=== PATIENT | male | born 1960 | race Caucasian/White ===

== ENCOUNTER 2018-03-08 12:17 | Emergency (ER) | payer MEDICARE, MEDICAID, SELFPAY ==
[2018-03-08 12:18] VITALS: BP 120/74; PULSE 109; RESP 18; TEMP 36.3; O2SAT 98; BMI 27.6
--- NOTE | 2018-03-08 12:46 | RAD_ITS ---
STUDY: X-RAY - LEFT KNEE REASON FOR EXAM: Male, 57 years old. Left knee pain. Left knee gave out. TECHNIQUE: 4 view(s) of the knee. COMPARISON: None available. FINDINGS: Normal visualized distal femur. Normal visualized proximal tibia and fibula. Normal proximal tibiofibular articulation. Normal medial femorotibial compartment. Normal lateral femorotibial compartment. Normal patellofemoral articulation. No suprapatellar joint effusion identified. The soft tissue structures are unremarkable. Bone mineralization appears age appropriate. RAD/Knee 4 or More Views IMPRESSION: Nonacute x-ray examination of the knee. Electronically Signed: Leif Helton, at 14:09 EDT Tel , Service support ,
[2018-03-08] MEDS: Naproxen 500 MG Tablet PO (12:49)
--- NOTE | 2018-03-08 13:00 | RAD_ITS ---
STUDY: X-RAY - RIGHT KNEE REASON FOR EXAM: Male, 57 years old. Right knee pain. Right knee gave out. TECHNIQUE: 4 view(s) of the knee. COMPARISON: None available. FINDINGS: Normal visualized distal femur. Normal visualized proximal tibia and fibula. Normal proximal tibiofibular articulation. Normal medial femorotibial compartment. Normal lateral femorotibial compartment. Normal patellofemoral articulation. No surgical or joint effusion identified. The soft tissue structures are unremarkable. Bone mineralization appears age appropriate. RAD/Knee 4 or More Views IMPRESSION: Nonacute x-ray examination of the knee. Electronically Signed: Leif Helton, at 14:07 EDT Tel , Service support ,
--- NOTE | 2018-03-08 13:24 | ED.VISSUMM ---
- ER Visit Summary Date of Service: 03/08/18 Chief Complaint: [knee pain] History of Present Illness: The patient is a 57 M [that presents with bilateral knee pain that started today when he got off his lawnmower and he states both his knees gave out. He denies landing on his knees or having any direct trauma or injury. He has pain that is worse with movement and better with remaining still. No associated paresthesias or weakness. He describes a dull aching pain. No swelling of the extremities. No other complaints. He has not yet taken anything for the pain.] Physical Examination: [General: The patient appears well and in no apparent distress. Patient is resting comfortably on cart. Skin: Warm, dry, no pallor noted. No rash. Head: Normocephalic, atraumatic Neck: Supple, nontender. Cardiovascular: Regular Rate and Rhythm, no gallups or rubs Respiratory: Patient is in no distress, no accessory muscle use, lungs are clear to auscultation, no wheezing, rales or rhonchi Musculoskeletal: normal ROM, no deformity, mild tenderness bilateral anterior knees, no swelling. 2+ radial and DP pulses symmetric. All compartments are soft. No erythema, warmth, or evidence of joint infection. Extensor mechanism is intact bilaterally. No instability with varus or valgus stress. GI: No tenderness to palpation, no masses appreciated. No rebound, guarding, or rigidity noted. Neurological: A&O, normal strength and sensation. Psychiatric: Cooperative] Test Results: [X-rays of bilateral knees show no acute fracture or dislocation on my evaluation.] Emergency Department Course and Treatment: [X-rays show no acute fracture or dislocation. Patient was given Naprosyn for pain. Patient will be placed in Mj wrap for comfort bilaterally and I will refer him to primary care for follow-up. He was instructed to return with any new or worsening symptoms. He will be provided a short-term prescription for Naprosyn. Patient and family understand and are agreeable with this plan of care. Patient was discharged home in stable condition.] Treatment Plan: [See above] Disposition: [Discharge home, stable condition] Impression: [Bilateral knee pain] This note was generated with [employer] software. It may contain incorrect words, spelling, and punctuation that were not noted in review of the chart prior to signing ED Disposition - Plan for ED Patient: Disposition: Home or Assisted Living Chief Complaint: Lower Extremity Injury Instructions: ED Knee Pain UKO Prescriptions: Naproxen [Naprosyn] 500 mg PO BID PRN #20 tab Referrals: Edmond Mcgee DO [STAFF PHYSICIAN] -
--- NOTE | 2018-03-08 13:29 | ED.DCSUM_ITS ---
- ER Visit Summary Date of Service: 03/08/18 Chief Complaint: [knee pain] History of Present Illness: The patient is a 57 M [that presents with bilateral knee pain that started today when he got off his lawnmower and he states both his knees gave out. He denies landing on his knees or having any direct trauma or injury. He has pain that is worse with movement and better with remaining still. No associated paresthesias or weakness. He describes a dull aching pain. No swelling of the extremities. No other complaints. He has not yet taken anything for the pain.] Physical Examination: [General: The patient appears well and in no apparent distress. Patient is resting comfortably on cart. Skin: Warm, dry, no pallor noted. No rash. Head: Normocephalic, atraumatic Neck: Supple, nontender. Cardiovascular: Regular Rate and Rhythm, no gallups or rubs Respiratory: Patient is in no distress, no accessory muscle use, lungs are clear to auscultation, no wheezing, rales or rhonchi Musculoskeletal: normal ROM, no deformity, mild tenderness bilateral anterior knees, no swelling. 2+ radial and DP pulses symmetric. All compartments are soft. No erythema, warmth, or evidence of joint infection. Extensor mechanism is intact bilaterally. No instability with varus or valgus stress. GI: No tenderness to palpation, no masses appreciated. No rebound, guarding, or rigidity noted. Neurological: A&O, normal strength and sensation. Psychiatric: Cooperative] Test Results: [X-rays of bilateral knees show no acute fracture or dislocation on my evaluation.] Emergency Department Course and Treatment: [X-rays show no acute fracture or dislocation. Patient was given Naprosyn for pain. Patient will be placed in Mj wrap for comfort bilaterally and I will refer him to primary care for follow -up. He was instructed to return with any new or worsening symptoms. He will be provided a short-term prescription for Naprosyn. Patient and family understand and are agreeable with this plan of care. Patient was discharged home in stable condition.] Treatment Plan: [See above] Disposition: [Discharge home, stable condition] Impression: [Bilateral knee pain] This note was generated with [employer] software. It may contain incorrect words, spelling, and punctuation that were not noted in review of the chart prior to signing ED Disposition - Plan for ED Patient: Disposition: Home or Assisted Living Chief Complaint: Lower Extremity Injury Instructions: ED Knee Pain UKO Prescriptions: Naproxen [Naprosyn] 500 mg PO BID PRN #20 tab Referrals: Edmond cMgee DO [STAFF PHYSICIAN] -
== END 2018-03-08 13:52 | disposition home or self-care (01) ==
PROVIDERS: Emergency Provider Emergency Medicine
DX: M25.561 Pain in right knee (principal); M25.562 Pain in left knee; E66.9 Obesity, unspecified
CPT/HCPCS: 73564; 99282

== ENCOUNTER 2018-03-30 22:22 | Emergency (ER) | payer MEDICARE, MEDICAID, SELFPAY ==
[2018-03-30 22:24] VITALS: BP 120/69; PULSE 85; RESP 16; TEMP 36.8; O2SAT 96; BMI 28.5
[2018-03-30 22:42] VITALS: O2SAT 98
[2018-03-30] MEDS: Aspirin 81 MG TAB.CHEW 324 MG PO (22:46)
[2018-03-30 22:52] LABS: Absolute Lymphocyte Count 1.91 X10^3/ul (0.83-4.51); Absolute Neutrophil Count 4.5 X10^3/uL (2.0-7.7); Basophil# 0.03 X10^3/uL; Basophil% 0.4 % (0-1); Eosinophil# 0.16 X10^3/uL; Eosinophils% 2.2 % (0-5); Hematocrit 43.9 % (40-54); Hemoglobin 15.6 g/dl (13.0-16.5); Lymphocyte # 1.91 X10^3/ul (4.0); Lymphocyte % 26.7 % (19-41); Mean Corp Hgb Conc 35.5 g/gl (32-36); Mean Corpuscular Hgb 32.4 pg (27.0-32.0); Mean Corpuscular Volume 91.1 fL (80-94); Mean Platelet Vol. 10.7 fl (6.2-12.0); Monocyte# 0.53 X10^3/uL; Monocyte% 7.4 % (0-10); Neutrophil # 4.52 X10^3/uL (2.7-7.7); Neutrophil % 63.3 % (47-70); Platelet Count 202 K/mm3 (150-450); RBC Distribution Width CV 12.5 % (11.6-14.6); RBC Distribution Width SD 41.7 fl (35.1-43.9); Red Blood Count 4.82 M/mm3 (4.6-6.2); White Blood Count 7.2 K/mm3 (4.4-11.0)
[2018-03-30 22:53] LABS: POSITIVE COUNT NO; POSITIVE DIFFERENTIAL NO; POSITIVE MORPHOLOGY NO
--- NOTE | 2018-03-30 22:55 | ED.VISSUMM ---
- ER Visit Summary Date of Service: 03/30/18 Chief Complaint: Chest pain History of Present Illness: The patient is a 57 M presenting with chest pain that started just prior to arrival. Patient was coming to the hospital to meet his girlfriend who was taken by squad to the ER for syncope. He began having midsternal chest pain 01/07. He has nausea and shortness of breath associated with this. He has a family history of his mother having a fatal OR at age 61. No other coronary artery disease risk factors. No PE/DVT risk factors. He is not a smoker. Physical Examination: Vitals are stable. Patient is afebrile. Alert no acute distress. HEENT exam is unremarkable. Neck is supple. Lungs are clear and equal bilaterally. Heart is regular rate and rhythm. Abdomen is soft nontender nondistended. Extremities are unremarkable. Skin is warm and dry. No focal neurologic deficit. Remainder of exam is unremarkable. Emergency Department Course and Treatment: Patient was given aspirin, morphine, Zofran on arrival. EKG is sinus rate of 86 with no acute ischemic changes. Chest x-ray shows no acute process. CBC, chemistries are unremarkable. Troponin is negative. On reevaluation, patient is chest pain-free. Will obtain a delta troponin. This will be checked out to the nighttime physician. Disposition: Pending delta troponin Impression: Chest pain This note was generated with [employer] dictation software. It may contain incorrect words, spelling, and punctuation that were not noted in review of the chart prior to signing ED Disposition - Plan for ED Patient: Chief Complaint: Chest Pain Instructions: ED Chest Pain Atypical Unkn Cause Referrals: Anna Kim MD [STAFF PHYSICIAN] - Care Physician,No Primary [Primary Care Provider] -
--- NOTE | 2018-03-30 22:58 | ED.DCSUM_ITS ---
- ER Visit Summary Date of Service: 03/30/18 Chief Complaint: Chest pain History of Present Illness: The patient is a 57 M presenting with chest pain that started just prior to arrival. Patient was coming to the hospital to meet his girlfriend who was taken by squad to the ER for syncope. He began having midsternal chest pain 01/07. He has nausea and shortness of breath associated with this. He has a family history of his mother having a fatal RI at age 61. No other coronary artery disease risk factors. No PE/DVT risk factors. He is not a smoker. Physical Examination: Vitals are stable. Patient is afebrile. Alert no acute distress. HEENT exam is unremarkable. Neck is supple. Lungs are clear and equal bilaterally. Heart is regular rate and rhythm. Abdomen is soft nontender nondistended. Extremities are unremarkable. Skin is warm and dry. No focal neurologic deficit. Remainder of exam is unremarkable. Emergency Department Course and Treatment: Patient was given aspirin, morphine, Zofran on arrival. EKG is sinus rate of 86 with no acute ischemic changes. Chest x-ray shows no acute process. CBC, chemistries are unremarkable. Troponin is negative. On reevaluation, patient is chest pain-free. Will obtain a delta troponin. This will be checked out to the nighttime physician. Disposition: Pending delta troponin Impression: Chest pain This note was generated with [employer] dictation software. It may contain incorrect words, spelling, and punctuation that were not noted in review of the chart prior to signing ED Disposition - Plan for ED Patient: Chief Complaint: Chest Pain Instructions: ED Chest Pain Atypical Unkn Cause Referrals: Anna Kim MD [STAFF PHYSICIAN] - Care Physician,No Primary [Primary Care Provider] -
[2018-03-30] MEDS: Morphine 4 MG/ML Syringe IV (23:06)
[2018-03-30] MEDS: Ondansetron 4 MG/2 ML Vial IV (23:06)
[2018-03-30 23:09] LABS: Anion Gap 16 (5-15); BUN 12 mg/dL (7-18); BUN/Creat Ratio 11.7 RATIO (10-20); Calcium,Total 8.9 mg/dL (8.5-10.1); Chloride 96 mmol/L (98-107); Creatinine, Serum 1.03 mg/dL (0.70-1.30); EST Glomerular Filtration Rate 79 mL/min (>60); Est Glom Filt Rate - Afr Amer 96 mL/min (>60); Estimated Creatinine Clearance 65.22 ml/min; Glucose 94 mg/dL (74-106); Potassium 3.8 mmol/L (3.5-5.1); Sodium Level 136 mmol/L (136-145)
[2018-03-30 23:23] VITALS: BP 121/75; PULSE 89; RESP 20; O2SAT 96
--- NOTE | 2018-03-30 23:53 | ED.DEP ---
ED Disposition - Plan for ED Patient: Chief Complaint: Chest Pain Instructions: ED Chest Pain Atypical Unkn Cause Referrals: Care Physician,No Primary [Primary Care Provider] - Anna Kim MD [STAFF PHYSICIAN] -
[2018-03-31] VITALS: BP 116/62; PULSE 79; RESP 17; O2SAT 93
[2018-03-31 01:24] VITALS: BP 127/65; PULSE 91; RESP 25; O2SAT 95
[2018-03-31] MEDS: proMETHazine 25 MG/ML Syringe 12.5 MG IV (01:24)
[2018-03-31 02:12] VITALS: BP 103/85; PULSE 90; RESP 20; O2SAT 98
--- NOTE | 2018-03-31 02:13 | ED.RN ---
PT GIVEN WRITTEN AND VERBAL DISCHARGE INSTRUCTIONS. PT EDUCATED NOT TO DRIVE FOR 6 HOURS AFTER HAVING MORPHINE. PT VERBALIZES UNDERSTANDING AND DENIES ANY FURTHER QUESTIONS. IV D/C AND COVERED WITH 2X2 GAUZE AND PAPER TAPE. PT DRESSES SELF. REPORTS FATHER IN LAW IS COMING TO PICK HIM UP FOR A RIDE. HOME. PT AMBULATES OUT OF DEPT AFTER DRESSING SELF WITH NO NEEDED ASSISTANCE FROM STAFF.
== END 2018-03-31 02:15 | disposition home or self-care (01) ==
PROVIDERS: Emergency Provider Emergency Medicine
DX: R07.9 Chest pain, unspecified (principal); R11.0 Nausea; R06.00 Dyspnea, unspecified
CPT/HCPCS: 71045; 80048; 84484; 85025; 93005; 96374; 96375; 99285; A4216; J2405

== ENCOUNTER → 2018-04-10 11:39 | Outpatient (CLI) | payer MEDICARE, MEDICAID, SELFPAY ==
[2018-04-10 15:39] LABS: AST(SGOT) 17 U/L (15-37); Alanine Aminotransfer ALT/SGPT 18 U/L (16-61); Alkaline Phosphatase 67 U/L (45-117); Anion Gap 9 (5-15); BUN 8 mg/dL (7-18); BUN/Creat Ratio 9.6 RATIO (10-20); Calcium,Total 8.8 mg/dL (8.5-10.1); Chloride 99 mmol/L (98-107); Cholesterol 249 mg/dL (200); Creatinine, Serum 0.83 mg/dL (0.70-1.30); EST Glomerular Filtration Rate 101 mL/min (>60); Est Glom Filt Rate - Afr Amer 123 mL/min (>60); Glucose 88 mg/dL (74-106); High Density Lipoprotein 90 mg/dL; PSA,Total - Annual Screen 0.58 ng/mL (0.00-4.00); Potassium 4.3 mmol/L (3.5-5.1); Sodium Level 136 mmol/L (136-145); Triglycerides 65 mg/dL; Very Low Density Lipoprotein 13 mg/dL (5-40)
== END ==
PROVIDERS: Family Provider Family Medicine; PCP Family Medicine; Visit Provider Family Medicine
DX: Z00.00 Encounter for general adult medical examination without abnormal findings (principal); Z12.5 Encounter for screening for malignant neoplasm of prostate
CPT/HCPCS: 36415; 80053; 80061; 84153; G0103

== ENCOUNTER → 2019-04-12 11:30 | Outpatient (CLI) | payer MEDICARE, MEDICAID, SELFPAY ==
[2019-04-12 15:42] LABS: Absolute Lymphocyte Count 0.56 X10^3/uL (0.83-4.51); Absolute Neutrophil Count 5.6 X10^3/uL (2.0-7.7); Basophil# 0.05 X10^3/uL; Basophil% 0.7 % (0-1); Eosinophil# 0.06 X10^3/uL; Eosinophils% 0.9 % (0-5); Hematocrit 45.5 % (40-54); Hemoglobin 15.6 g/dL (13.0-16.5); Lymphocyte # 0.56 X10^3/ul (4.0); Lymphocyte % 8.2 % (19-41); Mean Corp Hgb Conc 34.3 g/dL (32-36); Mean Corpuscular Hgb 33.8 pg (27.0-32.0); Mean Corpuscular Volume 98.7 fL (80-94); Mean Platelet Vol. 10.4 fl (6.2-12.0); Monocyte# 0.62 X10^3/uL; NRBC Flagged by Analyzer 0 % (0-5); Neutrophil # 5.55 X10^3/uL (2.7-7.7); Neutrophil % 80.9 % (47-70); POSITIVE DIFFERENTIAL YES; Platelet Count 187 K/mm3 (150-450); RBC Distribution Width CV 12.6 % (11.6-14.6); RBC Distribution Width SD 45.9 fl (35.1-43.9); Red Blood Count 4.61 M/mm3 (4.6-6.2); White Blood Count 6.9 K/mm3 (4.4-11.0)
[2019-04-12 15:50] LABS: Differential Indicated SCAN CRITERIA MET
[2019-04-12 15:55] LABS: AST(SGOT) 31 U/L (15-37); Alanine Aminotransfer ALT/SGPT 40 U/L (16-61); Albumin, Serum 4.2 g/dL (3.2-5.0); Alkaline Phosphatase 67 U/L (45-117); Anion Gap 8 (5-15); BUN 7 mg/dL (7-18); BUN/Creat Ratio 10.2 RATIO (10-20); Calcium,Total 9.2 mg/dL (8.5-10.1); Chloride 98 mmol/L (98-107); Creatinine, Serum 0.68 mg/dL (0.70-1.30); EST Glomerular Filtration Rate 127 mL/min (>60); Est Glom Filt Rate - Afr Amer 154 mL/min (>60); Globulin 4.2 g/dL (2.2-4.2); Glucose 72 mg/dL (74-106); PSA,Total - Annual Screen 0.92 ng/mL (0.00-4.00); Potassium 4.6 mmol/L (3.5-5.1); Protein, Total 8.4 g/dL (6.4-8.2); Sodium Level 138 mmol/L (136-145)
[2019-04-12 18:22] LABS: Platelet Estimate ADEQUATE (ADEQ); Red Cell Morphology NORM C+C NORMAL (NORM C&C)
== END ==
PROVIDERS: Family Provider Family Medicine; PCP Family Medicine; Visit Provider Family Medicine
DX: Z00.00 Encounter for general adult medical examination without abnormal findings (principal); F17.220 Nicotine dependence, chewing tobacco, uncomplicated; Z80.42 Family history of malignant neoplasm of prostate; Z12.5 Encounter for screening for malignant neoplasm of prostate
CPT/HCPCS: 36415; 80053; 84153; 85025; G0103

== ENCOUNTER 2020-05-12 15:28 | Emergency (ER) | payer MEDICARE, MEDICAID, SELFPAY ==
[2020-05-12] VITALS (7 sets, daily range): BP systolic 141–154; BP diastolic 75–94; PULSE 98–110; RESP 16–22; TEMP 36.4; O2SAT 97–99; BMI 23.8
--- NOTE | 2020-05-12 15:42 | EKG12_ITS ---
Test Reason : CP Blood Pressure : / mmHG Vent. Rate : 098 BPM Atrial Rate : 098 BPM P-R Int : 120 ms QRS Dur : 084 ms QT Int : 374 ms P-R-T Axes : 057 045 060 degrees QTc Int : 477 ms Normal sinus rhythm Normal ECG Confirmed by EVAN ROJO, GIOVANNI ([id number]), editor managing newspaper TOI LAMBERT ([id number]) on 05/18/2020 8:20:30 A M Referred By: PAZ Confirmed By:YENY GORDON MD
--- NOTE | 2020-05-12 15:42 | RAD_ITS ---
STUDY: X-RAY CHEST REASON FOR EXAM: Male, 59 years old. Pleuritic chest pain and dyspnea. TECHNIQUE: PA and lateral COMPARISON: 03/30/2018. FINDINGS: The lungs are clear and expanded. There is no demonstrated pleural abnormality. Normal size heart. Normal mediastinum and ivnone. Normal visualized pulmonary arteries. Normal visualized aortic arch and descending thoracic aorta. Normal visualized thoracic spine. Normal visualized ribs, clavicles, and shoulders. There is no demonstrated abnormality of the visualized soft tissue structures of the upper abdomen. No significant change since prior exam RAD/Chest PA and Lateral IMPRESSION: Normal x-ray examination of the chest. Electronically Signed: Eduardo Khan MD at 16:17 EDT , Service support ,
--- NOTE | 2020-05-12 15:43 | ED.DCSUM_ITS ---
History of Present Illness Chief Complaint: Chest Pain Detail of Chief Complaint: Pleuritic chest pain with dyspnea Informant: Patient Onset: Hours Context: Sudden Onset Timing: Intermittent Quality: Pleuritic left-sided chest pain Location: Left side Current Severity: Mild Maximum Severity: Moderate Worsened by: Onset with walking home from [facility] Relieved by: Nothing specific Associated Symptoms: Sensation of warmth, nausea and tingling left upper extremity Narrative: Patient is a 59-year-old male who smoked at the age of 20 only who presents with left-sided pleuritic chest pain while he was walking home from [facility]. He reported shortness of breath, sensation of warmth with nausea. He did not become diaphoretic. He denied radiation of the pain. He states that left arm was tingly, however. He denies history of trauma. Denies skin lesion or rash. He denies fever, chills night sweats. He has no history of VTE or risk factors. He states he had similar presentation several years ago and had a stress test which was negative. He denies history of hiatal hernia or reflux. He denies black or maroon stool. He denies cough. He denies rhinorrhea, congestion or postnasal drainage. Denies sore throat. He denies symptoms of claudication. Has orthopnea PND. Prior similar symptoms: Yes - Years ago with negative work-up Recent Illness/Hospitalization: No Past Medical History - Allergies and Home Meds Allergies/Adverse Reactions: Allergies No Known Allergies Allergy (Verified 03/30/18 22:23) Primary Care Physician: Riana Shanks MD [Primary Care Provider] - Prior records reviewed: No Surgical History: noncontributory Lives: Alone Smoking Status: Never smoker Alcohol: None Drugs: None Review of Systems General: Denies: Chills, Fever, Malaise Eyes: Denies: Visual changes - bilaterally, Blurred Vision - bilaterally ENT: Denies: Rhinorrhea, Sore throat Cardiovascular: Reports: Chest pain. Denies: Palpitations, Heart racing Respiratory: Reports: Dyspnea. Denies: Cough, Dyspnea on exertion, Orthopnea, Paroxysmal nocturnal dyspnea Gastrointestinal: Reports: Nausea. Denies: Abdominal pain, Vomiting, Diarrhea, Constipation, Melena, Hematochezia, -, - Musculoskeletal: Denies: Myalgias, Arthralgias, Neck pain, Back pain, Swelling, Extremity Pain, -, - Skin: Denies: Rash, Wounds Neurological: Denies: Headache, Weakness, Numbness Endocrine: Denies: Polyuria, Polydipsia Hematologic: Denies: Easy bruising, Easy bleeding Physical Exam Vital Signs/Narrative: Vital Signs Temp Pulse Resp BP Pulse Ox 05/12/20 15:33 97.6 F L 98 18 152/86 H 99 05/12/20 15:29 97.6 F L 98 18 152/86 H 99 Inital Vital Signs reviewed: Yes General: Well nourished, Well developed, No Acute Distress Head: Normocephalic, Atraumatic Eyes: Perrl, EOMI. Negative for: Pale conjunctiva, Scleral icterus ENT: No rhinorrhea, TM's clear Neck: Supple, Nontender, No lymphadenopathy, No JVD Cardiovascular: Regular rate, Regular rhythm, No murmurs, Normal S1, Normal S2 Respiratory: No distress, CTA bilaterally, Chest nontender Abdomen: Soft, Nontender, Nondistended, Normal bowel sounds, No masses. Negative for: Hepatomegaly, Splenomegaly, Pulsatile mass Rectal: Deferred Back: Nontender, Normal Inspection. Negative for: CVA tenderness Extremities: Nontender, No edema, - - And has multiple scars left upper extremity. These are well-healed. Skin: Normal color, No rash, No Trauma. Negative for: Cyanosis, Diaphoresis, Jaundice Neurological: Alert, Oriented x3, Cranial nerves II-XII grossly intact, Normal Strength, Normal Sensation Psychological: Normal affect, Normal Mood Diagnostic/Tx/Re-eval Impressions Chest X-Ray 05/12/20 15:42 IMPRESSION: Normal x-ray examination of the chest. Electronically Signed: Eduardo Kahn MD at 16:17 EDT , Service support , Chest CTA 05/12/20 16:58 IMPRESSION: Mild ASHD. No acute disease. No evidence for pulmonary embolus. Electronically Signed: Eduardo Khan MD at 18:06 EDT , Service support , 05/12/20 15:42 Chest PA and Lateral [RAD] Stat 05/12/20 16:58 CTA Chest W/WO Contrast [CT] Stat Laboratory Results 05/12/20 05/12/20 05/12/20 15:45 15:45 15:45 WBC 3.9 L RBC 4.20 L Hgb 14.6 Hct 41.1 MCV 97.9 H MCH 34.8 H MCHC 35.5 RDW Std Deviation 42.8 RDW Coeff of Gabriel 11.9 Plt Count 151 MPV 9.5 Immature Gran % (Auto) 0.300 Neut % (Auto) 72.7 H Lymph % (Auto) 16.1 L Bledsoe % (Auto) 9.1 Eos % (Auto) 0.8 Baso % (Auto) 1.0 Absolute Neuts (auto) 2.8 Absolute Lymphs (auto) 0.62 L Nucleated RBC % 0 D-Dimer Quant (PE/DVT) 0.58 H* Sodium 135 L Potassium 4.0 Chloride 98 Carbon Dioxide 30.0 Anion Gap 7 BUN 5 L Creatinine 0.71 Estim Creat Clear Calc 99.85 Est GFR (MDRD) Af Amer 147 Est GFR (MDRD) Non-Af 121 BUN/Creatinine Ratio 7.1 L Glucose 95 Calcium 8.5 Troponin I < 0.015 05/12/20 18:45 WBC RBC Hgb Hct MCV MCH MCHC RDW Std Deviation RDW Coeff of Gabriel Plt Count MPV Immature Gran % (Auto) Neut % (Auto) Lymph % (Auto) Bledsoe % (Auto) Eos % (Auto) Baso % (Auto) Absolute Neuts (auto) Absolute Lymphs (auto) Nucleated RBC % D-Dimer Quant (PE/DVT) Sodium Potassium Chloride Carbon Dioxide Anion Gap BUN Creatinine Estim Creat Clear Calc Est GFR (MDRD) Af Amer Est GFR (MDRD) Non-Af BUN/Creatinine Ratio Glucose Calcium Troponin I < 0.015 CT reveals evidence of atherosclerotic heart disease. Reason for 3-hour troponin and repeat EKG. Repeat EKG is normal and unchanged from first EKG obtained. Per subjective troponin normal and delta is 0. Will discharge to home with diagnosis of pleuritic chest pain - EKG Initial EKG Interpretation: Sinus Rhythm - EKG reveals a normal sinus rhythm with a ventricular rate of 98. CO interval is 120. Cures duration is 84 ms. QT duration 3 and 74 ms. [place] is normal. The EKG is normal. Follow-up EKG Interpretation: Sinus Rhythm - 3-hour EKG reveals a sinus rhythm with a rate of 100. CO interval is 114 ms. QS duration 74 ms. QT duration 364 ms. [place] is normal. EKG is normal and unchanged from EKG that was performed earlier today at 1535. - Medical Decision Making With pleuritic chest pain need to evaluate for pneumonia, bronchitis, pleurisy and pulmonary embolus. EKG, chest x-ray appropriate blood work was obtained. ED Disposition - Plan for ED Patient: Disposition: Home or Assisted Living Diagnosis: Pleuritic chest pain, Dyspnea Instructions: ED Chest Pain Pleurisy Prescriptions: Naproxen [Naprosyn] 500 mg PO BID #10 tab Prescription Printed Referrals: Riana Shanks MD [Primary Care Provider] - 3-5 Days if not improving
[2020-05-12 16:01] LABS: Absolute Lymphocyte Count 0.62 X10^3/uL (0.83-4.51); Absolute Neutrophil Count 2.8 X10^3/uL (2.0-7.7); Basophil# 0.04 X10^3/uL; Eosinophil# 0.03 X10^3/uL; Eosinophils% 0.8 % (0-5); Hematocrit 41.1 % (40-54); Hemoglobin 14.6 g/dL (13.0-16.5); Lymphocyte # 0.62 X10^3/ul (4.0); Lymphocyte % 16.1 % (19-41); Mean Corp Hgb Conc 35.5 g/dL (32-36); Mean Corpuscular Hgb 34.8 pg (27.0-32.0); Mean Corpuscular Volume 97.9 fL (80-94); Mean Platelet Vol. 9.5 fl (6.2-12.0); Monocyte# 0.35 X10^3/uL; Monocyte% 9.1 % (0-10); NRBC Flagged by Analyzer 0 % (0-5); Neutrophil % 72.7 % (47-70); Platelet Count 151 K/mm3 (150-450); RBC Distribution Width CV 11.9 % (11.6-14.6); RBC Distribution Width SD 42.8 fl (35.1-43.9); White Blood Count 3.9 K/mm3 (4.4-11.0)
[2020-05-12 16:20] LABS: Anion Gap 7 (5-15); BUN 5 mg/dL (7-18); BUN/Creat Ratio 7.1 RATIO (10-20); Calcium,Total 8.5 mg/dL (8.5-10.1); Chloride 98 mmol/L (98-107); Creatinine, Serum 0.71 mg/dL (0.70-1.30); D-Dimer Quantitative (DVT/PE) 0.58 FEU/ug/m (0.27-0.49); EST Glomerular Filtration Rate 121 mL/min (>60); Est Glom Filt Rate - Afr Amer 147 mL/min (>60); Estimated Creatinine Clearance 99.85 ml/min; Glucose 95 mg/dL (74-106); Sodium Level 135 mmol/L (136-145)
--- NOTE | 2020-05-12 16:58 | CT_ITS ---
STUDY: CTA CHEST REASON FOR EXAM: Male, 59 years old. SOB, CHEST PAIN, ELEVATED D-DIMER RADIATION DOSAGE (If Supplied By Facility): CTDIvol = ( 7.37 ) mGy, DLP = ( 261.88 ) mGycm TECHNIQUE: The examination was performed with the intravenous administration of IV 75mL Isovue-370. Post-processing of the angiographic images was performed, with multiplanar reformation and 3D reconstruction. Individualized dose optimization techniques were used for this CT. COMPARISON: Portable chest 05/12/2020 CTA 06/25/2017 FINDINGS: Normal enhancement of the main pulmonary artery and right and left pulmonary arteries. Normal enhancement of the bilateral peripheral pulmonary arteries. There is no demonstrated pulmonary embolism. Normal thoracic aorta and visualized great vessels. There is no demonstrated aortic dissection. Heart is normal size. There is minor coronary artery calcification Normal mediastinum. Normal hilar regions. Normal visualized trachea and bronchi. The lungs are well expanded. Normal pulmonary parenchyma. Normal pleura. Normal chest wall structures. Dorsal spine demonstrates mild spondylosis Normal visualized upper abdomen. CT/CTA Chest W/WO Contrast IMPRESSION: Mild ASHD. No acute disease. No evidence for pulmonary embolus. Electronically Signed: Eduardo Khan MD at 18:06 EDT , Service support ,
--- NOTE | 2020-05-12 18:40 | EKG12_ITS ---
Test Reason : REPEAT Blood Pressure : / mmHG Vent. Rate : 100 BPM Atrial Rate : 100 BPM P-R Int : 114 ms QRS Dur : 074 ms QT Int : 364 ms P-R-T Axes : 059 039 072 degrees QTc Int : 469 ms Normal sinus rhythm Normal ECG Confirmed by EVAN ROJO, GIOVANNI ([id number]), avid editor TOI LAMBERT ([id number]) on 05/18/2020 8:20:44 A M Referred By: Confirmed By:YENY GORDON MD
== END 2020-05-12 20:02 | disposition home or self-care (01) ==
PROVIDERS: Emergency Provider Emergency Medicine; PCP Family Medicine
DX: R07.81 Pleurodynia (principal); R06.00 Dyspnea, unspecified; R11.0 Nausea; I25.10 Atherosclerotic heart disease of native coronary artery without angina pectoris
CPT/HCPCS: 71046; 71275; 80048; 84484; 85025; 85379; 93005; 99283; Q9967; A4216

== ENCOUNTER → 2020-06-02 09:01 | Outpatient (CLI) | payer MEDICARE, MEDICAID, SELFPAY ==
[2020-05-12 15:29] VITALS: BMI 23.8
--- NOTE | 2020-06-02 09:03 | STEWCON_ITS ---
Reason For Study: DYSPNEA ON EXERTION Stress Results Protocol: [facility] Protocol WITH DEFINITY Maximum Predicted HR: 162 bpm Target HR: 138 bpm % Maximum Predicted HR: 97 % DurationHeart Rate Stage (mm:ss) (bpm) BP Comment BASELINE 112 138/885 CC DEFINITY FOR ENTIRE TEST STAGE 1 3:00 137 162/82 STAGE 2 3:00 142 166/70 STAGE 3 2:00 157 / RECOVERY 122 140/80 Stress Duration: 8:00 mm:ss Maximum Stress HR: 157 bpm METS: 9 Baseline Echocardiogram Findings Mild tricuspid valve insufficiency. Right ventricular systolic pressure estimated to be 33 mmHg. Stress Echo Wall motion Data Resting WM Intermediate WM Stress WM Resting Wall Motion Wall Motion Stress All segments Normal. Anterio-Basal: Normal. Ejection Fraction 60 %. Lateral-Basal: Normal. Posterior-Basal: Normal. Infero-Basal: Hypokinetic. Basal inferoseptal: Normal. Basal anteroseptal: Normal. Mid-Anterior : Normal. Mid-Lateral : Hypokinetic. Mid-Posterior: Normal. Mid-Inferior: Hypokinetic. Mid-inferoseptal : Normal. Mid-anteroseptal : Normal. Anterior [place] : Normal. Inferior [place] : Normal. Lateral [place] : Normal. Septall [place] : Normal. Ejection Fraction 70 %. Stress Results Heart rate response: Resting sinus tachycardia-appropriate response Blood pressure: Resting hypertension-appropriate response Arrhythmias: Isolated PVC during recovery Functional capacity: Good Stopped secondary to: Dyspnea. EKG Data Baseline ECG: Sinus tachycardia. Peak exercise ECG: Somatic/motion artifact with no obvious ECG changes. Symptoms with Stress No complaint of chest discomfort during exercise or recovery. Doppler Measurements & Calculations TR max vince: 271.4 cm/sec TR max P.5 mmHg Interpretation Summary 1. Technically difficult study 2. Contrast injection performed 3. Abnormal (adequate) stress echocardiogram A. Pre exercise tolerance test LV wall motion: Considered normal B. Post exercise tolerance test LV wall motion: Considered abnormal with hypokinesis of the basal inferior, mid inferior, and mid lateral segments 4. Mild tricuspid valve insufficiency. 5. Right ventricular systolic pressure estimated to be 33 mmHg. Ordering Physician: Riana Shanks Referring Physician: Riana Shanks Performed By: Tori Darnell, RDCS, RVT
== END ==
PROVIDERS: PCP Family Medicine; Referring Provider Family Medicine; Visit Provider Family Medicine
DX: R06.00 Dyspnea, unspecified (principal)
CPT/HCPCS: 93017; 93350; Q9957; A4216; C8928

== ENCOUNTER 2020-07-19 08:58 | Emergency (ER) | payer MEDICARE, MEDICAID, SELFPAY ==
[2020-07-16 16:14] VITALS: BMI 24.8
[2020-07-19 08:59] VITALS: BP 155/79; PULSE 80; RESP 16; TEMP 36.4; O2SAT 100; BMI 30.9
--- NOTE | 2020-07-19 09:08 | ED.VIS.GEN ---
History of Present Illness Chief Complaint: Upper Extremity Injury Informant: Patient Narrative: 60-year-old male states that last night he misjudged the distance between him and his chair and he came down causing hyperextension of the right ring finger. He notes swelling and pain. He denies any other injuries Past Medical History - Allergies and Home Meds Allergies/Adverse Reactions: Allergies No Known Allergies Allergy (Verified 07/19/20 09:01) Primary Care Physician: Riana Shanks MD [Primary Care Provider] - Past Medical History: - - Abnormal stress test hyperlipidemia Surgical History: noncontributory Smoking Status: Never smoker Drugs: None Review of Systems General: Denies: Chills, Fever, Sweats Eyes: Denies: Visual changes - bilaterally, Diplopia ENT: Denies: Rhinorrhea, Sore throat Cardiovascular: Denies: Chest pain, Palpitations Respiratory: Denies: Dyspnea, Cough, Dyspnea on exertion Gastrointestinal: Denies: Abdominal pain, Nausea, Vomiting, Diarrhea, Melena, Hematochezia Genitourinary: Denies: Dysuria, Hematuria, Frequency Musculoskeletal: Reports: Extremity Pain. Denies: Back pain Skin: Denies: Rash, Wounds Neurological: Denies: Headache, Weakness, Numbness Physical Exam Vital Signs/Narrative: Vital Signs Temp Pulse Resp BP Pulse Ox 07/19/20 08:59 97.6 F L 80 16 155/79 H 100 Inital Vital Signs reviewed: Yes General: Well nourished, Well developed, No Acute Distress Head: Normocephalic, Atraumatic Eyes: Perrl, EOMI ENT: Moist mucous membranes, No rhinorrhea Neck: Supple, Nontender Cardiovascular: Regular rate, Regular rhythm, No murmurs Respiratory: No distress, CTA bilaterally, Chest nontender Abdomen: Soft, Nontender, Nondistended, Normal bowel sounds Back: Nontender, Normal Inspection Extremities: - - Tenderness to palpation over the right ring PIP joint. There is mild swelling and ecchymosis noted. Tendon function appears intact. Limited range of motion due to pain Skin: Normal color, No rash Neurological: Alert, Oriented x3, Cranial nerves II-XII grossly intact, Normal Strength, Normal Sensation Psychological: Normal affect, Normal Mood Diagnostic/Tx/Re-eval Clinical Impression(s) from Imaging Studies Finger X-Ray 07/19/20 09:10 IMPRESSION: No radiographic evidence for acute fracture or dislocation. Electronically Signed: Vicky Segura MD at 9:30 EST , Service support , - Medical Decision Making My interpretation of the plain films 3 view of the right ring finger were negative for fracture. Positive soft tissue swelling. Radiology agrees. Patient will be placed in AlumaFoam splint. Conservative treatment for 10 to 14 days return if worsening or concerns. If not improvement follow-up with primary care ED Disposition - Plan for ED Patient: Disposition: Home or Assisted Living Diagnosis: Finger sprain Instructions: ED Finger Sprain Referrals: Riana Shanks MD [Primary Care Provider] - 10-14 Days if not better
--- NOTE | 2020-07-19 09:10 | RAD_ITS ---
STUDY: X-RAY - RIGHT HAND, ATTENTION RING FINGER REASON FOR EXAM: Male, 60 years old patient with pain, swelling, redness and stiff right ring finger. Patient states he fell off a chair last night and bent his finger back. TECHNIQUE: 3 view(s) of the finger were obtained. COMPARISON: Prior comparison studies are not available for review at this time. FINDINGS: Normal metacarpal head. Normal metacarpophalangeal joint. Normal proximal phalanx. Normal middle phalanx. Normal distal phalanx. Normal proximal interphalangeal joint. Normal distal interphalangeal joint. There is a localized soft tissue swelling at the PIP joint of the ring finger. There is a well-corticated bony fragment near the radial styloid that is probably secondary to previous trauma. RAD/Finger(s) Min 2 Views IMPRESSION: No radiographic evidence for acute fracture or dislocation. Electronically Signed: Vicky Segura MD at 9:30 EST , Service support ,
== END 2020-07-19 09:54 | disposition home or self-care (01) ==
PROVIDERS: Emergency Provider Emergency Medicine; PCP Family Medicine
DX: S63.614A Unspecified sprain of right ring finger, initial encounter (principal); X50.1XXA Overexertion from prolonged static or awkward postures, initial encounter; Y93.9 Activity, unspecified; Y92.9 Unspecified place or not applicable
CPT/HCPCS: 73140; 99283

== ENCOUNTER 2020-08-07 07:49 | Day surgery (SDC) | payer MEDICARE, MEDICAID, SELFPAY ==
[2020-07-16 16:14] VITALS: BMI 24.8
[2020-07-21 11:22] LABS: Absolute Lymphocyte Count 0.71 X10^3/uL (0.83-4.51); Absolute Neutrophil Count 3.9 X10^3/uL (2.0-7.7); Basophil# 0.05 X10^3/uL; Basophil% 0.9 % (0-1); Eosinophil# 0.12 X10^3/uL; Eosinophils% 2.2 % (0-5); Hematocrit 46.2 % (40-54); Hemoglobin 15.9 g/dL (13.0-16.5); Lymphocyte # 0.71 X10^3/ul (4.0); Lymphocyte % 12.9 % (19-41); Mean Corp Hgb Conc 34.4 g/dL (32-36); Mean Corpuscular Hgb 34.5 pg (27.0-32.0); Mean Corpuscular Volume 100.2 fL (80-94); Mean Platelet Vol. 10.1 fl (6.2-12.0); Monocyte# 0.67 X10^3/uL; Monocyte% 12.2 % (0-10); NRBC Flagged by Analyzer 0 % (0-5); Neutrophil # 3.94 X10^3/uL (2.7-7.7); Neutrophil % 71.4 % (47-70); Platelet Count 218 K/mm3 (150-450); RBC Distribution Width CV 11.8 % (11.6-14.6); RBC Distribution Width SD 43.3 fl (35.1-43.9); Red Blood Count 4.61 M/mm3 (4.6-6.2); White Blood Count 5.5 K/mm3 (4.4-11.0)
[2020-07-21 11:33] LABS: International Normalized Ratio 0.9; Partial Thromboplast Time 23.9 Seconds (24.1-36.2); Prothrombin Time (Protime)PT. 11.2 SECONDS (11.7-14.9)
[2020-07-21 11:54] LABS: AST(SGOT) 22 U/L (15-37); Alanine Aminotransfer ALT/SGPT 20 U/L (16-61); Alkaline Phosphatase 63 U/L (45-117); Anion Gap 5 (5-15); BUN 7 mg/dL (7-18); Calcium,Total 8.8 mg/dL (8.5-10.1); Chloride 99 mmol/L (98-107); Cholesterol 244 mg/dL (200); Creatinine, Serum 0.78 mg/dL (0.70-1.30); EST Glomerular Filtration Rate 109 mL/min (>60); Est Glom Filt Rate - Afr Amer 132 mL/min (>60); Globulin 4.1 g/dL (2.2-4.2); Glucose 120 mg/dL (74-106); High Density Lipoprotein 122 mg/dL; Protein, Total 8.1 g/dL (6.4-8.2); Sodium Level 137 mmol/L (136-145); Triglycerides 120 mg/dL; Very Low Density Lipoprotein 24 mg/dL (5-40)
[2020-08-06 10:56] VITALS: BMI 24.7
--- NOTE | 2020-08-07 06:00 | HP_ITS ---
HPI HPI History of Present Illness Surgical H&P: Yes Details: This is a 60-year-old white male who was referred for evaluation of chest pain, shortness of breath/dyspnea, and abnormal chest CT scan demonstrating coronary artery calcification, and an abnormal stress echocardiogram suggesting stress-induced left ventricular regional wall motion abnormalities concerning for stress-induced myocardial ischemia. He states he has had episodes where he gets a somewhat sharp but then a hurting discomfort in the center of his chest/precordium. This is associated with shortness of breath and dyspnea. This is occurred with exertion. He has not necessarily had nausea or emesis or diaphoresis. There is been no near syncope or syncope. He has been evaluated in the emergency department. He did not require inpatient evaluation or care at the time. He has had a chest CT scan which suggested coronary artery calcification. He had a stress echocardiogram performed on 06-02-2020. The results are noted below. It did raise concerns of stress-induced left ventricular regional wall motion abnormalities which would be concerning for stress-induced myocardial ischemia despite his overall LV systolic function improving. Since that time he was placed on medical therapy with aspirin by his PCP. It does appear that he has a history of hyperlipidemia. He does not recall the last time his lipids were checked. His lab available for review at this time was on 04-10-2018. At that time his total cholesterol was 249 with an LDL of 146 and an HDL of 90. His triglycerides were 65. He has not been on lipid-lowering medication. He had an ECG in the office today. He was noted to be in sinus rhythm/sinus tachycardia with no acute ECG changes. Intake Vital Signs 07/16/20 Height 5 ft 3 in 07/16/20 Weight: 140 lb 5 oz 07/16/20 BMI 24.8 07/16/20 BP 132/60 H 07/16/20 Blood Pressure Location Lt brachial 07/16/20 Position Sitting 07/16/20 Respiration 16 07/16/20 Pulse 92 07/16/20 Pulse Source Auscultation Intake Visit Reasons: Abn SE/ Ref. [place] Machine Operator Required: No Accompanied by: Self Allergies No Known Allergies Allergy (Verified 07/16/20 16:15) Medications aspirin 81 mg tablet,delayed release 81 mg PO DAILY 07/16/20 [History Confirmed 07/16/20] clopidogrel 75 mg tablet 75 mg PO DAILY #30 tab 07/16/20 [Rx Confirmed 07/16/20] metoprolol tartrate 25 mg tablet 25 mg PO BID #60 tab 07/16/20 [Rx Confirmed 07/16/20] PFSH Medical History Abnormal stress echocardiogram (Acute) Surgical History Cleft palate (Resolved) History of surgery on arm (Resolved) Family History Mother Myocardial infarction Heart disease Social History (Updated 07/16/20 @ 17:[address] Leo Howell MD) Smoking Status: Never smoker Smokeless tobacco user: chewing tobacco alcohol intake: never substance use type: does not use caffeine: Yes Type: coffee Number of servings: 1 ROS Const Const: Negative for fatigue, weakness, frequent falls, excessive sweating, weight gain or weight loss Eyes Eyes: Negative for transient loss of vision, blurry vision or change in vision ENT ENT: Negative for dizziness or balance problems Cardio Chest Pain: Yes Character: sharp Onset: exercise Location: left chest Duration: minutes Relieving: rest Palpitations: No Edema: None Muscle aches with walking: None Resp Respiratory: Positive for SOB with activity (occasional); negative for SOB at rest GI GI: Negative vomiting or vomiting blood/hematemesis : Negative for hematuria Musc Musc: Negative for muscle aches/ myalgia, muscle weakness, joint pain or balance problems Skin Skin: Negative non-healing lesions or rash Neuro Neuro: Positive for lightheadedness (occasional bending over); negative for dizziness, orthostatic symptoms, frequent falls, weakness or blurry vision Amrit Hematologic/Lymphatic: Negative for easy bleeding Endo Endo: Negative for fatigue or excessive sweating Psych Psych: Negative for anxiety or depression Allergy Allergy/Immunology: Negative for hives, Negative for rash Cardiology Exam Const Appearance: cooperative, healthy appearing, comfortable, no acute distress, well developed and well groomed Nutritional Appearance: average body habitus Orientation: alert, awake and oriented x3 Head Head: normal to inspection, normocephalic and atraumatic Ears: hearing grossly normal bilaterally Nose: external nose normal Face and Sinus: face symmetric Eyes Eyelids: eyelids normal Conjunctivae: conjunctivae normal Pupils: PERRL EOM: EOM intact bilaterally Neck Neck: normal visual inspection and full ROM Carotids: normal carotid upstroke Chest Chest inspection: normal inspection of the chest, symmetric chest movement and normal respiratory effort Auscultation: Bilateral: Clear to Auscultation Cardio Palpation: normal PMI Rate: regular rate Rhythm: regular rhythm Heart sounds: S1 normal and S2 normal GI GI: normal to inspection, soft and bowel sounds present Neuro General: alert, awake, oriented x3 and moves all extremities Skin Skin: no rashes or lesions noted Extremities Pulses: Normal: Right Radial Pulse, Left Radial Pulse Lower Extremity Edema: None: Bilateral Psych Psychological: normal affect Assessment & Plan 1. Precordial pain R07.2 Plan At the time he does have concerns of precordial chest discomfort. This has occurred with exertional activity on more than 1 occasion. Based upon his cardiovascular studies thus far there is concern about underlying CAD with stress-induced myocardial ischemia. At this time he will continue medical management. This will include his aspirin therapy, the addition of antiplatelet therapy, the addition of beta-vonnie therapy, and further risk assessment with future fasting lipid hepatic profile as well as further diagnostic studies with diagnostic cardiac catheterization. Orders Orders: Left Heart Cath/COR/LV Percut Today Basic Metabolic Profile (BMP) Today Lipid Profile Today Liver Profile Today Partial Thromboplast Time Today Prothrombin Time w/INR Today CBC W/Diff, Automated Today 2. Dyspnea on exertion R06.00 Plan He does have shortness of breath/dyspnea on exertion. Again based upon his history and his objective findings there are concerns of the possibility of underlying CAD with myocardial ischemia. Thus he will continue his evaluation and care as noted. His previous CT scan did not suggest any pulmonary disease would explain his symptoms, etc. If his cardiovascular evaluation is unremarkable then he may need further evaluation by pulmonology for this. Orders Orders: Left Heart Cath/COR/LV Percut Today Basic Metabolic Profile (BMP) Today Lipid Profile Today Liver Profile Today Partial Thromboplast Time Today Prothrombin Time w/INR Today CBC W/Diff, Automated Today 3. Coronary artery calcification I25.10; I25.84 Plan He was found to have coronary artery calcification. This does increase his overall cardiovascular risks. He will continue evaluation care as described. Orders Orders: Left Heart Cath/COR/LV Percut Today Basic Metabolic Profile (BMP) Today Lipid Profile Today Liver Profile Today Partial Thromboplast Time Today Prothrombin Time w/INR Today CBC W/Diff, Automated Today 4. Abnormal stress echocardiogram R94.39 Plan His stress echocardiogram is considered abnormal. It does raise concern of the possibility of underlying stress-induced myocardial ischemia with stress-induced left ventricular regional wall motion abnormalities. He does note that there is a possibility this could be a false positive finding. However with his symptoms, his risk factors, it was felt reasonable that he undergo further evaluation with diagnostic cardiac catheterization. The procedure and risks were discussed with him. He was agreeable to this approach. Orders Orders: 12 Lead EKG performed by [facility] Today Left Heart Cath/COR/LV Percut Today Basic Metabolic Profile (BMP) Today Lipid Profile Today Liver Profile Today Partial Thromboplast Time Today Prothrombin Time w/INR Today CBC W/Diff, Automated Today Plan Detail Other Orders Orders: Lipid Profile Today E78.00 Liver Profile Today E78.00 Other Medications New: clopidogrel (Plavix) 75 mg PO DAILY 30 tabs 1RF metoprolol tartrate 25 mg PO BID 60 tabs 1RF Additional Comments The above was discussed and reviewed with the patient. He was agreeable to the aforementioned evaluation and care plan. Follow Up 3 Months (PFM) Coding Level of Care Code Off vis,new,level 5 Diagnoses Precordial pain R07.2 ??Chest pain type: precordial pain Dyspnea on exertion R06.00 Coronary artery calcification I25.10; I25.84 Abnormal stress echocardiogram R94.39 Coding Level of Care Code Off vis,new,level 5 Diagnoses Precordial pain R07.2 ??Chest pain type: precordial pain Dyspnea on exertion R06.00 Coronary artery calcification I25.10; I25.84 Abnormal stress echocardiogram R94.39 Supplemental Info Supplemental Information Stress echocardiogram: 06-02-2020 Interpretation Summary 1. Technically difficult study 2. Contrast injection performed 3. Abnormal (adequate) stress echocardiogram A. Pre exercise tolerance test LV wall motion: Considered normal B. Post exercise tolerance test LV wall motion: Considered abnormal with hypokinesis of the basal inferior, mid inferior, and mid lateral segments 4. Mild tricuspid valve insufficiency. 5. Right ventricular systolic pressure estimated to be [address] scan: 05-12-2020 FINDINGS: Normal enhancement of the main pulmonary artery and right and left pulmonary arteries. Normal enhancement of the bilateral peripheral pulmonary arteries. There is no demonstrated pulmonary embolism. Normal thoracic aorta and visualized great vessels. There is no demonstrated aortic dissection. Heart is normal size. There is minor coronary artery calcification Normal mediastinum. Normal hilar regions. Normal visualized trachea and bronchi. The lungs are well expanded. Normal pulmonary parenchyma. Normal pleura. Normal chest wall structures. Dorsal spine demonstrates mild spondylosis Normal visualized upper abdomen. CT/CTA Chest W/WO Contrast IMPRESSION: Mild ASHD. No acute disease. No evidence for pulmonary embolus. Electronically Signed: Eduardo Khan MD at 18:06 EDT Labs LDL Cholesterol 146 mg/dL (0-130) H 04/10/18 HDL Cholesterol 90 mg/dL (40-) 04/10/18 Triglycerides 65 mg/dL (-199) 04/10/18 VLDL Cholesterol 13 mg/dL (5-40) 04/10/18 Diagnostics Electrocardiogram 07/16/20 Stress Echocardiogram 06/02/20 Chest X-Ray 05/12/20 I have re-examined the patient. There are no clinical changes since date of exam. The surgeon/proceduralist and patient have discussed in detail the risk of exposure to and/or potential harm posed by the COVID-19 virus with having a surgery/procedure at this time versus the risk of delaying the surgery/procedure. It is not possible to know either the risk of delaying the surgery or procedure or chance of getting an infection with perfect accuracy, but a joint decision was made between the patient and the surgeon/proceduralist to proceed at this time with the scheduled surgery/procedure as indicated on the consent form.
--- NOTE | 2020-08-07 10:22 | CL.D_ITS ---
Patient Name: IVY ADAN Study Date: 08/07/2020 Performing: Leo Howell MD Ht: 62.99 inches 160 cm : 1960 Wt: 141.1 lbs 64 kg Age: 60 Gender: male BSA: 1.67 PROCEDURE(S) PERFORMED RU40-JCF/COR/LV CLINICAL PROFILE AND INDICATIONS Indications: Suspected CAD Heart Failure: None Stress/Imaging Date: 06/02/2020Stress Echocardiogram: Indeterminant Angina Classification Anginal Classification w/in 2 Weeks: CCS II CAD Presentations: Stable angina. CONCLUSIONS Elevated Left Ventricular End Diastolic Pressure (mild) Normal LV size, wall motion,and systolic function LVEF: by LV gram 65 % Double vessel CAD of the LAD / RCA: mild luminal irregularities RECOMMENDATIONS Risk factor modification Medical therapy DESCRIPTION OF PROCEDURE The patient arrived to the procedure lab. The risks and benefits of the procedure as well as a full d escription of our services here and current unavailability of surgical backup were fully explained to the patient and/or their significant other prior to the catheterization. The Timeout was completed, verifying the correct patient and procedure. The patient's procedural site was prepped and draped in the usual fashion. Local anesthetic was given subcutaneously to right radial region with Lidocaine 2% . Using a modified Seldinger technique, arterial access was obtained via the right radial artery, a 6 Fr sheath was inserted. Right Coronary Artery selective angiography was performed in multiple views using a 5 Fr. 4.0 [place] catheter. Left Coronary Artery selective angiography was performed in multipl e views using a 5 Fr. 4.0 [place] catheter. Left Ventriculography was performed in BONNER projection using a 5 Fr. [place] catheter. LV to AO pullback pressures were then recorded.The arterial sheath was pulled and a TR Band was applied for hemostasis CORONARY ANGIOGRAPHY DOMINANCE: Co- Dominant LEFT HEART ASSESSMENT Left Ventricular Ejection Fraction: by LV Gram 65 % Normal LV wall motion Elevated Left Ventricular End Diastolic Pressure LVEDP: 16 mmHg LEFT MAIN: Angiographically normal LEFT ANTERIOR DESCENDING ARTERY: PROX LAD: Mild luminal irregularities CIRCUMFLEX ARTERY: Angiographically normal RIGHT CORONARY ARTERY: Mild luminal irregularities AORTIC ROOT: Angiographically normal COMPLICATIONS No Complications PROCEDURE MEDICATIONS Versed 1 mg IV Fentanyl 50 mcg IV Versed 1 mg IV Fentanyl 50 mcg IV Oxygen: 2 L/min via nasal cannula Heparin diluted in 23cc Heparinized saline. Patient given 10cc IA of this solution. 08/07/2020 09:26:5 4 Verapamil 2.5mg, Ntg 100mcgs, 2000 units of Heparin diluted in 23cc Heparinized saline. Patient give n 10cc IA of this solution. 08/07/2020 09:26:54 SUMMARY OF HEMODYNAMIC DATA Time AIR REST ECG 08:11:05 AO 128/60 (85) SA 09:31:39 LV 130/-2, 15 09:58:52 LV 125/-4, 8 09:58:58 LV 127/0, 16 10:01:30 LV 124/-1, 11 10:01:36 LVp 149/-5, 21 10:01:43 AOp 133/61 (91) 10:01:48 Signed By Leo Howell MD On 08/07/2020 10:21:38 Leo Howell MD
== END 2020-08-07 12:05 | disposition home or self-care (01) ==
LOC: CLSP 07:51
PROVIDERS: PCP Family Medicine; Referring Provider Internal Medicine Cardiovascular Disease; Visit Provider Internal Medicine Cardiovascular Disease
DX: I25.10 Atherosclerotic heart disease of native coronary artery without angina pectoris (principal); I25.84 Coronary atherosclerosis due to calcified coronary lesion; E78.5 Hyperlipidemia, unspecified; E78.00 Pure hypercholesterolemia, unspecified; Z79.82 Long term (current) use of aspirin; Z79.02 Long term (current) use of antithrombotics/antiplatelets; Z79.899 Other long term (current) drug therapy; R07.9 Chest pain, unspecified
CPT/HCPCS: 36415; 80048; 80061; 80076; 85025; 85610; 85730; 93458; 99152; 99153; J7040; Q9967; C1769; C1894

== ENCOUNTER 2020-11-04 13:14 | Emergency (ER) | payer OTHER, MEDICARE, MEDICAID, SELFPAY ==
[2020-08-06 10:56] VITALS: BMI 24.7
[2020-11-04 13:16] VITALS: BP 146/63; PULSE 85; RESP 16; TEMP 37.2; O2SAT 100; BMI 24.0
--- NOTE | 2020-11-04 13:50 | RAD_ITS ---
STUDY: X-RAY - THORACIC SPINE REASON FOR EXAM: Male, 60 years old. Injury/Pain TECHNIQUE: 3 view(s) of the thoracic spine were obtained. COMPARISON: None. FINDINGS: Normal kyphosis of the thoracic spine. There is no substantial scoliosis. There is demineralization of the thoracic spine with endplate spondylosis. There is multilevel disc space narrowing of the thoracic spine. The soft tissue structures are unremarkable. RAD/Thoracic Spine 3 Views IMPRESSION: There is demineralization of the thoracic spine with endplate spondylosis. There is multilevel disc space narrowing of the thoracic spine. Electronically Signed: Tyesha Spring MD at 14:36 EDT Tel , Service support ,
[2020-11-04] MEDS: Ondansetron ODT 4 MG Tablet PO (14:07)
[2020-11-04] MEDS: fentaNYL 100 MCG/2 ML Ampul 50 MCG IM (14:07)
--- NOTE | 2020-11-04 14:18 | RAD_ITS ---
STUDY: X-RAY - LUMBAR SPINE REASON FOR EXAM: Male, 60 years old. Injury/Pain TECHNIQUE: 2 view(s) of the lumbar spine were obtained. COMPARISON: None FINDINGS: There is straightening of the normal lumbar lordosis. There is no substantial scoliosis. There is a normal alignment of the vertebrae. Normal vertebral bodies and endplates. There is L5-S1 degenerative disc disease with multi-level disc space narrowing. The soft tissue structures are unremarkable. RAD/Lumbar Spine 2 or 3 Views IMPRESSION: There is L5-S1 degenerative disc disease with multi-level disc space narrowing. Electronically Signed: Tyesha Spring MD at 14:36 EDT Tel , Service support ,
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
== END 2020-11-04 14:56 | disposition home or self-care (01) ==
PROVIDERS: Emergency Provider Emergency Medicine; PCP Family Medicine
DX: S39.012A Strain of muscle, fascia and tendon of lower back, initial encounter (principal); S29.012A Strain of muscle and tendon of back wall of thorax, initial encounter; V03.90XA Pedestrian on foot injured in collision with car, pick-up truck or van, unspecified whether traffic or nontraffic accident, initial encounter; Y93.9 Activity, unspecified; Y92.481 Parking lot as the place of occurrence of the external cause
CPT/HCPCS: 72072; 72100; 96372; 99284

== ENCOUNTER → 2021-01-08 16:17 | Outpatient (CLI) | payer OTHER, MEDICARE, MEDICAID, SELFPAY ==
[2020-11-06 15:31] VITALS: BMI 24.7
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
== END ==
PROVIDERS: PCP Family Medicine; Referring Provider Family Medicine; Visit Provider Family Medicine
DX: M54.6 Pain in thoracic spine (principal)
CPT/HCPCS: 72146

== ENCOUNTER → 2021-02-23 13:26 | Outpatient (CLI) | payer MEDICARE, MEDICAID, SELFPAY ==
[2020-11-06 15:31] VITALS: BMI 24.7
[2021-02-23 15:10] LABS: Absolute Lymphocyte Count 0.93 X10^3/uL (0.83-4.51); Absolute Neutrophil Count 3.2 X10^3/uL (2.0-7.7); Basophil# 0.04 X10^3/uL; Basophil% 0.8 % (0-1); Eosinophil# 0.09 X10^3/uL; Eosinophils% 1.9 % (0-5); Hematocrit 38.1 % (40-54); Lymphocyte # 0.93 X10^3/ul (0.83-4.51); Lymphocyte % 19.3 % (19-41); Mean Corp Hgb Conc 34.1 g/dL (32-36); Mean Corpuscular Volume 96.7 fL (80-94); Monocyte# 0.54 X10^3/uL; Monocyte% 11.2 % (0-10); NRBC Flagged by Analyzer 0 % (0-5); Neutrophil # 3.22 X10^3/uL (2.7-7.7); Neutrophil % 66.6 % (47-70); Platelet Count 157 K/mm3 (150-450); RBC Distribution Width CV 12.9 % (11.6-14.6); RBC Distribution Width SD 46.1 fl (35.1-43.9); Red Blood Count 3.94 M/mm3 (4.6-6.2); White Blood Count 4.8 K/mm3 (4.4-11.0)
[2021-02-23 15:42] LABS: ALB/GLOB Ratio 1.4 RATIO (0.9-2.4); AST(SGOT) 47 U/L (15-37); Alanine Aminotransfer ALT/SGPT 38 U/L (16-61); Albumin, Serum 4.4 g/dL (3.2-5.0); Alkaline Phosphatase 61 U/L (45-117); Anion Gap 9 (5-15); BUN 7 mg/dL (7-18); BUN/Creat Ratio 10.6 RATIO (10-20); Calcium,Total 8.7 mg/dL (8.5-10.1); Chloride 96 mmol/L (98-107); Cholesterol 214 mg/dL (200); Creatinine, Serum 0.66 mg/dL (0.70-1.30); EST Glomerular Filtration Rate 132 mL/min (>60); Est Glom Filt Rate - Afr Amer 159 mL/min (>60); Globulin 3.1 g/dL (2.2-4.2); Glucose 65 mg/dL (74-106); High Density Lipoprotein 123 mg/dL; PSA,Total- Diagnostic 1.02 ng/mL (0.0-4.0); Potassium 4.5 mmol/L (3.5-5.1); Protein, Total 7.5 g/dL (6.4-8.2); Sodium Level 133 mmol/L (136-145); Triglycerides 52 mg/dL; Very Low Density Lipoprotein 10 mg/dL (5-40)
== END ==
PROVIDERS: PCP Family Medicine; Referring Provider Family Medicine; Visit Provider Family Medicine
DX: I10 Essential (primary) hypertension (principal); Z80.42 Family history of malignant neoplasm of prostate; E78.5 Hyperlipidemia, unspecified; R97.20 Elevated prostate specific antigen [PSA]
CPT/HCPCS: 36415; 80053; 80061; 84153; 85025

== ENCOUNTER 2021-03-04 13:30 | Outpatient (RCR) | payer MEDICARE, MEDICAID, SELFPAY ==
[2020-11-06 15:31] VITALS: BMI 24.7
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
--- NOTE | 2021-01-05 14:09 | HP.PTREVAL_ITS ---
Dr. Riana Shanks MD, It has been my pleasure to treat IVY ADAN over the last 10 visits for BACK PAIN. Please see the progress note below for an update on the physical therapy plan of care! Subjective: PATIENT REPORTS HE IS DOING A LOT BETTER BUT STILL HAVING SOME TROUBLE. WANTS TO HOLD PT UNTIL AFTER HAVING MRI AND GETTING RESULTS. I'M STILL HAVING THE THROBBING IN MY BACK AND THAT IS WHY DR. SHANKS WANTS ME TO HAVE AN MRI. HAVING NEEDLES IN FEET AND TOES TOO. Objective/Function: PATIENT WAS SEEN TODAY FOR RE-ASSESSMENT OF PROGRESS TOWARD THE SET PT GOALS AND THE NEED FOR FURTHER PHYSICAL THERAPY VS READINESS FOR DISCHARGE. PATIENT APPEARS TO BE A GOOD CANDIDATE TO CONTINUE PT BASED ON PROGRESS MADE AND ROOM FOR FURTHER IMPROVEMENT. HE WANTS TO HOLD PT PENDING MR RESULTS AND WILL DISCUSS PT WITH PCP AFTER RESULTS. UPON EXAM TODAY: PATIENT AMBULATES INDEP'LY INTO PT WITH NO GROSS DEVIATIONS NOTED. Motor deficit: KISHA LE'S 5/5 WITH MMT'ING. PATIENT C/O A LITTLE INCREASED BACK PAIN WITH HIP MMT'ING. KISHA UE'S GROSSLY 4/5 EXCEPT L UE LIMITATIONS FROM MULTIPLE SURGERIES. PATIENT DENIES C/O INCREASED BACK PAIN WITH UE MMT'ING TODAY. Sensory deficit: KISHA UE AND LE LIGHT TOUCH SENSATION APPEARS INTACT AND SYMMETRICAL INCLUDING L UE WHERE HE HAS HAD SURGERY BUT ONLY GROSS TESTING PERFORMED. ROM deficit: KISHA SHLD ROM LIMITED ABOUT 25% SYMMETRICALLY AND C/O PAIN IN BACK WITH TESTING. TIGHT KISHA LE HIP FLEXORS, HS'S AND GASTROC SOLEUS COMPLEX'S SYMMETRICALLY. Dural Signs: NEGATIVE KISHA LE'S. THORACIC MVMT LOSS: MOD KISHA T/S ROTATION ROM WITH TESTING AND PATIENT C/O INCREASED MID BACK PAIN WITH TESTING. CERVICAL MVMT LOSS: FLEX - NIL. PRO - NIL. EXT - MOSHE. RET - MOSHE. KISHA SB - MOD. R RO T - MOD. L ROT - MIN. PATIENT C/O INCREASED MID BACK PAIN WITH CERVICAL ROM TESTING. Lumbar mvmt loss: flex - MOD. ext - MOD. R SG - MOD. L SG - MOD. PATIENT C/O INCREASED MID AND LBP WITH LUMBAR ROM TESTING TODAY. Core strength: POOR. Palpation: PATIENT STILL WITH C/O TENDERNESS WITH VERY LIGHT PALPATION OF THE ENTIRE THORACIC, LUMBAR, SACRAL AND BUTTOCK AND HIP REGIONS. Plan Plan: RECOMMEND CONTINUED PT FOLLOWS IF ORDERS RECEIVED AFTER MRI RESULTS AND PATIENT AGREEABLE: AQUATIC THERPAY FOR POSTURE CORRECTION/STRENGTHENING, INSTRUCTION IN APPROPRIATE BODY MECHANICS AND ACTIVITY MODIFICATIONS. DLS STARTING WITH A NEUTRAL SPINE PROGRESSING ROM TOLERATED. KISHA UE AND LE ROM, STRETCHING AND STRENGTHENING. HEP INSTRUCTION. Goals Goal 1:: DECREASE C/O BACK PAIN. Goal Time Frame: 4-6 Weeks Goal Progress: Progressing Goal 2:: IMPROVE LIFTING, SITTING, STANDING, WALKING, SLEEP, SOCIAL LIFE, TRAVEL AND HOMEMAKING FUNCTION Goal Time Frame: 4-6 Weeks Goal Progress: Progressing Goal 3:: INSTRUCT IN PROPHYLAXIS Goal Time Frame: 4-6 Weeks Goal Progress: Progressing Anticipated Interventions Patient/Client Instruction: Educate patient on: Condition, Plan of Care, Risk Factors For the Purpose of:: To improve self management Therapeutic Exercise to Include: Strength training, Body mechanics, Postural training, Flexibilty training, Neuromotor development, In an aquatic setting, Dynamic Lumbar Stabilization, Scapular Strength/Stabilization For the Purpose of:: To decrease pain, To improve muscle performance and motor function, To increase tolerance to activity/condition/position, To improve ability of physical actions for home/community/work/leisure Please do not hesitate to contact me at [phone] by phone or if you have questions or concerns regarding this new plan of care! Sincerely, Gabriela Mahajan, PT, Cert MDT
--- NOTE | 2021-03-04 13:57 | HP.PTDCSUM_ITS ---
It has been my pleasure to treat IVY ADAN referred by Dr. Riana Shanks MD, with the diagnosis of BACK PAIN for a total of 10 visit(s). Discharge Date: Please see the following information for a summary of their discharge status. Subjective: PATIENT REPORTS HE WANTS TO FOLLOW UP WITH HIS PCP (RIANA SHANKS) BEFORE CONTINUING PT. PATIENT REPORTS HIS BACK IS STILL THROBBING AND IT IS STAYING AROUND A 3/10. PATIENT REPORTS THERAPY HELPED QUITE A BIT BUT IT IS NOT CONTINUING TO HELP. STATES HE STILL CAN'T LIFT MUCH WITHOUT INCREASED PAIN. STATES HE CAN DO REAL LIGHT STUFF BUT THAT IS ALL. PATIENT REPORTS HE WANTS TO SEE A SPINAL SURGEON. Lumbar Spine Pain Intensity (Out of 10): 3 thoracic pain Pain Intensity (Out of 10): 0 % Improvement: 60 Objective/Function: PATIENT WAS SEEN TODAY FOR RE-ASSESSMENT OF PROGRESS TOWARD THE SET PT GOALS AND THE NEED FOR FURTHER PHYSICAL THERAPY VS READINESS FOR DISCHARGE. UPON EXAM TODAY THERE ARE NO SIGNIFICANT CHANGES SINCE LAST RE- CHECK: THORACIC MVMT LOSS: MOD KISHA T/S ROTATION ROM WITH TESTING AND PATIENT C/O INCREASED MID BACK PAIN WITH TESTING. CERVICAL MVMT LOSS: FLEX - NIL. PRO - NIL. EXT - MOSHE. RET - MOSHE. KISHA SB - MOD. R ROT - MOD. L ROT - MIN. PATIENT C/O INCREASED MID BACK PAIN WITH CERVICAL ROM TESTING. Lumbar mvmt loss: flex - MOD. ext - MOD. R SG - MOD. L SG - MOD. PATIENT C/O INCREASED MID AND LBP WITH LUMBAR ROM TESTING TODAY. Core strength: POOR. Palpation: PATIENT STILL WITH C/O TENDERNESS WITH VERY LIGHT PALPATION OF THE ENTIRE THORACIC, LUMBAR, SACRAL AND BUTTOCK AND HIP REGIONS. Goal 1:: DECREASE C/O BACK PAIN. Goal Progress: Not Progressing Goal 2:: IMPROVE LIFTING, SITTING, STANDING, WALKING, SLEEP, SOCIAL LIFE, TRAVEL AND HOMEMAKING FUNCTION Goal Progress: Not Progressing Goal 3:: INSTRUCT IN PROPHYLAXIS Goal Progress: Not Progressing Plan: PHYSICIAN RE-ASSESSEMENT RECOMMENDED. D/C PT DUE TO LACK OF CONTINUED IMRPOVEMENT. PATIENT AGREEABLE. If there are questions or concerns regarding this patient's physical therapy, please feel free to call me at [phone]. Thank you for the referral of this patient. Sincerely, Gabriela Mahajan, PT, Cert MDT Balance/Gait/Functional tests - Balance/Special Test Scores Oswestry Low Back Score: 21
== END 2021-03-04 19:00 | disposition home or self-care (01) ==
LOC: PT 13:30
PROVIDERS: PCP Family Medicine; Referring Provider Family Medicine; Visit Provider Family Medicine
DX: M54.6 Pain in thoracic spine (principal)
CPT/HCPCS: 97112; 97113; 97162; 97164

== ENCOUNTER 2022-12-06 11:30 | Emergency (ER) | payer MEDICARE, MEDICAID, SELFPAY ==
[2022-12-06 11:31] VITALS: BP 132/100; PULSE 83; RESP 23; TEMP 35.9; O2SAT 100; BMI 29.1
--- NOTE | 2022-12-06 11:37 | RAD_ITS ---
STUDY: X-RAY CHEST REASON FOR EXAM: Male, 62 years old. Chest pain. TECHNIQUE: Single AP portable view of the chest. COMPARISON: Comparison is made with prior study dated May 12, 2020. FINDINGS: EKG electrodes are seen. Mild increased markings at the lung bases suggest bibasilar atelectasis and/or early infiltrate. There is no demonstrated pleural abnormality. Normal size heart. Normal mediastinum and ivonne. Normal visualized pulmonary arteries. Normal visualized aortic arch and descending thoracic aorta. Normal visualized thoracic spine. Healed right-sided rib fractures. There is no demonstrated abnormality of the visualized soft tissue structures of the upper abdomen. RAD/Chest 1 View (Portable) IMPRESSION: Mild increased markings at the lung bases suggestive of bilateral atelectasis and/or early infiltrates. Electronically Signed: Samuel Ferguson MD at 11:53 EDT ,
--- NOTE | 2022-12-06 11:37 | EKG12_ITS ---
Test Reason : CP Blood Pressure : / mmHG Vent. Rate : 082 BPM Atrial Rate : 082 BPM P-R Int : 126 ms QRS Dur : 082 ms QT Int : 404 ms P-R-T Axes : 048 025 073 degrees QTc Int : 472 ms Normal sinus rhythm Normal ECG Confirmed by EVAN ROJO, GIOVANNI ([id number]), magazine editor TOI LAMBERT ([id number]) on 12/07/2022 12:54:14 P M Referred By: LIBERTAD Confirmed By:YENY GORDON MD
[2022-12-06 11:38] VITALS: O2SAT 98
[2022-12-06 11:46] LABS: Absolute Lymphocyte Count 1.69 X10^3/uL (0.83-4.51); Absolute Neutrophil Count 3.9 X10^3/uL (2.0-7.7); Basophil# 0.08 X10^3/uL; Basophil% 1.3 % (0-1); Eosinophil# 0.14 X10^3/uL; Eosinophils% 2.2 % (0-5); Hematocrit 45.4 % (40-54); Hemoglobin 15.9 g/dL (13.0-16.5); Lymphocyte # 1.69 X10^3/ul (0.83-4.51); Lymphocyte % 26.6 % (19-41); Mean Corpuscular Hgb 32.9 pg (27.0-32.0); Mean Corpuscular Volume 93.8 fL (80-94); Monocyte# 0.52 X10^3/uL; Monocyte% 8.2 % (0-10); NRBC Flagged by Analyzer 0 % (0-5); Neutrophil # 3.91 X10^3/uL (2.7-7.7); Neutrophil % 61.5 % (47-70); Platelet Count 211 K/mm3 (150-450); RBC Distribution Width CV 13.5 % (11.6-14.6); RBC Distribution Width SD 46.7 fl (35.1-43.9); Red Blood Count 4.84 M/mm3 (4.6-6.2); White Blood Count 6.4 K/mm3 (4.4-11.0)
[2022-12-06 12:04] LABS: Anion Gap 14 (5-15); BUN 7 mg/dL (7-18); BUN/Creat Ratio 9.4 RATIO (10-20); Calcium,Total 8.6 mg/dL (8.5-10.1); Chloride 97 mmol/L (98-107); Creatinine, Serum 0.74 mg/dL (0.70-1.30); EST Glomerular Filtration Rate 114 mL/min (>60); Est Glom Filt Rate - Afr Amer 138 mL/min (>60); Estimated Creatinine Clearance 85.44 ml/min; Glucose 85 mg/dL (74-106); Potassium 4.3 mmol/L (3.5-5.1); Sodium Level 136 mmol/L (136-145); Troponin-I HS (w/2H Reflex) 6 pg/mL (3.0-78.0)
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
[2022-12-06 12:30] VITALS: BP 125/67; PULSE 79; RESP 17; O2SAT 92
[2022-12-06 13:52] LABS: Troponin-I HS 6 pg/mL (3.0-78.0)
[2022-12-06 13:54] VITALS: BP 113/57; PULSE 79; RESP 14; O2SAT 96
[2022-12-06 14:09] VITALS: BP 119/67; PULSE 90; RESP 18; O2SAT 97
== END 2022-12-06 14:11 | disposition home or self-care (01) ==
PROVIDERS: Emergency Provider Emergency Medicine; PCP Family Medicine; Visit Provider Emergency Medicine
DX: R07.9 Chest pain, unspecified (principal); E78.5 Hyperlipidemia, unspecified; F17.220 Nicotine dependence, chewing tobacco, uncomplicated; I10 Essential (primary) hypertension; I25.10 Atherosclerotic heart disease of native coronary artery without angina pectoris; Z79.82 Long term (current) use of aspirin
CPT/HCPCS: 71045; 80048; 84484; 85025; 93005; 99285

== ENCOUNTER → 2022-12-30 | Outpatient (CLI) | payer MEDICARE, MEDICAID, SELFPAY ==
--- NOTE | 2022-12-30 09:33 | STEWCON_ITS ---
Reason For Study: Chest Pain Stress Results Stress Echocardiogram-Kendall Protocol with Protocol: Definity Maximum Predicted HR: 160 bpm Target HR: 136 bpm % Maximum Predicted HR: 88 % DurationHeart Rate Stage (mm:ss) (bpm) BP Comment Baseline 97 140/68Pt denies chest pain. Stage 1 3:00 127 148/80Pt denies chest pain. Stage 2 3:00 137 162/58Moderate shortness of breath. Pt denies chest pain. Stage 3 0:30 141 / Fatigue, Increased shortness of breath. Denies chest pain. Recovery 120/70Pt denies chest pain. 2.5ml total definity used. Stress Duration: 6:30 mm:ss Maximum Stress HR: 141 bpm Baseline Echocardiogram Findings Stress Echo Wall motion Data Resting WM Intermediate WM Stress WM Resting Wall Motion Wall Motion Stress No regional wall motion All segments Hyperkinetic. abnormalities noted. EKG Data The baseline ECG displays normal sinus rhythm. No ischemic changes. Doppler Measurements & Calculations TR max vince: 238.6 cm/sec TR max P.8 mmHg ECHO/Stress Test Echo W/Contrast Interpretation Summary Negative adequate exercise stress echo. No ECG ischemic changes. No wall motion abnormality noted post exercise. All segments hyperdynamic. No e cho evidence of ischemia. Ordering Physician: Riana Shanks Referring Physician: Riana Shanks Performed By:
== END | disposition home or self-care (01) ==
PROVIDERS: PCP Family Medicine; Referring Provider Family Medicine; Visit Provider Family Medicine
DX: R07.9 Chest pain, unspecified (principal)
CPT/HCPCS: 93017; 93350; Q9957; A4216; C8928

== ENCOUNTER 2023-01-07 22:01 | Emergency (ER) | payer MEDICARE, MEDICAID, SELFPAY ==
[2023-01-07 22:02] VITALS: BP 133/97; PULSE 91; RESP 16; TEMP 36.6; O2SAT 94; BMI 29.2
[2023-01-07 22:08] VITALS: O2SAT 93
--- NOTE | 2023-01-07 22:25 | CT_ITS ---
INDICATION: pain/injury EXAMINATION: CT LUMBAR SPINE - CT Spine Lumbar W/O Contrast Injection TECHNIQUE: Helically acquired images were obtained of the lumbar spine. 2D reformats were reviewed. A radiation dose optimization technique was used for this scan. IV Contrast dosage and agent: None. COMPARISON: None. FINDINGS: L1 compression fracture. This involves anterior and posterior aspects of the vertebral body. Less than 25% loss of height anteriorly however there is some retropulsion of the posterior vertebral body posteriorly by about 6 mm contributing to mild to moderate canal stenosis. Fracture also involves the right lamina at L1. There is moderate disc narrowing at L5/S1 however discal height preserved at other levels. At L5/S1 there is severe right and mild to moderate left-sided neural foraminal narrowing. Neural foramina appear intact at the upper levels. Visualized portions of the retroperitoneum show no acute abnormality. Atherosclerotic aortoiliac disease is present. Intact SI joints. No focal aggressive osseous lesion. CT/Spine Lumbar without Contrast IMPRESSION: Lumbar spine compression fracture. Note that this does involve the right lamina as well which would make this a 3 column injury. Electronically Signed: Santi Lindsay MD at 23:36 EDT ,
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
[2023-01-07] MEDS: Ondansetron 4 MG/2 ML Vial IV (22:40)
[2023-01-07] MEDS: Morphine 4 MG/ML Syringe IV (22:40)
[2023-01-07] MEDS: Orphenadrine 60 MG/2 ML Ampul IV (22:40)
[2023-01-07] MEDS: HYDROmorphone 1 MG/ML Syringe IV (23:46)
[2023-01-08 00:46] VITALS: PULSE 97; RESP 20; O2SAT 97
== END 2023-01-08 00:54 | disposition home or self-care (01) ==
PROVIDERS: Emergency Provider Emergency Medicine; PCP Family Medicine; Visit Provider Emergency Medicine
DX: M48.56XA Collapsed vertebra, not elsewhere classified, lumbar region, initial encounter for fracture (principal); I10 Essential (primary) hypertension; E78.5 Hyperlipidemia, unspecified; I25.10 Atherosclerotic heart disease of native coronary artery without angina pectoris; W18.39XA Other fall on same level, initial encounter; Y93.02 Activity, running; Z79.82 Long term (current) use of aspirin; Z79.899 Other long term (current) drug therapy; F17.220 Nicotine dependence, chewing tobacco, uncomplicated
CPT/HCPCS: 72131; 96374; 96375; 99285; A4216; J2405

== ENCOUNTER → 2023-02-16 | Outpatient (CLI) | payer MEDICARE, MEDICAID, SELFPAY ==
--- NOTE | 2023-02-16 | BON_PTH ---
PATIENT: IVY ADAN LOC: [facility] U#:[id number] AGE/SX: 62/M ROOM: RE02/16/[address]: Dr. Eduardo Springer MD : [id number] BED: DIS: 02/16/2023 SPEC #: [id number] RECD: 02/17/23 10:01 STATUS: GUILLERMINA FARHANMindy #: [id number] JAVIER: 02/16/23 00:[address]: Eduardo Springer DEPT: SURGICAL PATHOLOGY RECD BY: Edgar Wray ENTERED: 02/17/23 10:10 SP TYPE: Bone OTHR DR: Dr. Riana Shanks MD [facility] Tissues: Vertebra, NOS Procedures: Decalcification bone/plaque Surgery Specimen Level V HEADER OPERATION: Kyphoplasty at L1 and biopsy at L1 PRE-OP DIAGNOSIS: Age-related osteoporosis with current pathological fracture TISSUE SUBMITTED: Body of L1 MICROSCOPIC DIAGNOSIS L1 vertebral body, bone biopsy: Reparative and reactive change consistent with fracture site. No evidence of malignancy. AM:ning 02/20/2023 MICROSCOPIC DESCRIPTION Slides are reviewed. GROSS DESCRIPTION Received in fixative is one container labeled with the patient's name and designated body of L1. The specimen consists of a cylindrical fragment of vega bone measuring 0.8 cm in length and 0.2 cm in diameter. The specimen is totally submitted in one cassette after decalcification. / AM:ning 02/17/2023 TC:5 CPT: 40891, 21953
== END | disposition home or self-care (01) ==
LOC: LABSPEC 15:43
PROVIDERS: PCP Family Medicine; Referring Provider Anesthesiology Pain Medicine; Visit Provider Anesthesiology Pain Medicine
DX: M80.08XA Age-related osteoporosis with current pathological fracture, vertebra(e), initial encounter for fracture (principal)
CPT/HCPCS: 88305; 88307; 88311

== ENCOUNTER 2023-12-31 07:41 | Emergency (ER) | payer MEDICARE, MEDICAID, SELFPAY ==
[2023-12-31 07:42] VITALS: BP 154/83; PULSE 133; RESP 18; TEMP 36.4; O2SAT 96; BMI 27.6
[2023-12-31] MEDS: 0.9% Normal Saline (1000mL) 1,000 ML 999 ML IV (08:44)
[2023-12-31] MEDS: Ketorolac 15 MG/ML Vial IV (08:45)
[2023-12-31] MEDS: Ondansetron 4 MG/2 ML Vial IV (08:45)
[2023-12-31 08:49] LABS: Absolute Lymphocyte Count 0.83 X10^3/uL (0.83-4.51); Absolute Neutrophil Count 6.5 X10^3/uL (2.0-7.7); Basophil# 0.04 X10^3/uL; Basophil% 0.5 % (0-1); Eosinophil# 0.09 X10^3/uL; Eosinophils% 1.1 % (0-5); Hematocrit 42.9 % (40-54); Hemoglobin 15.1 g/dL (13.0-16.5); Lymphocyte # 0.83 X10^3/ul (0.83-4.51); Lymphocyte % 10.3 % (19-41); Mean Corp Hgb Conc 35.2 g/dL (32-36); Mean Corpuscular Hgb 34.6 pg (27.0-32.0); Mean Corpuscular Volume 98.4 fL (80-94); Mean Platelet Vol. 10.3 fl (6.2-12.0); Monocyte# 0.54 X10^3/uL; Monocyte% 6.7 % (0-10); NRBC Flagged by Analyzer 0 % (0-5); Neutrophil # 6.51 X10^3/uL (2.7-7.7); Neutrophil % 81.2 % (47-70); Platelet Count 158 K/mm3 (150-450); RBC Distribution Width CV 12.8 % (11.6-14.6); RBC Distribution Width SD 46.3 fl (35.1-43.9); Red Blood Count 4.36 M/mm3 (4.6-6.2)
[2023-12-31 09:02] VITALS: BP 130/115; PULSE 111; RESP 20; O2SAT 96
[2023-12-31 09:03] VITALS: BP 130/115; PULSE 111; RESP 20; TEMP 36.4; O2SAT 96
[2023-12-31 09:04] LABS: ALB/GLOB Ratio 0.9 RATIO (0.9-2.4); AST(SGOT) 68 U/L (15-37); Alanine Aminotransfer ALT/SGPT 26 U/L (16-61); Albumin, Serum 3.6 g/dL (3.2-5.0); Alkaline Phosphatase 86 U/L (45-117); Anion Gap 12 (5-15); BUN 10 mg/dL (7-18); BUN/Creat Ratio 14.2 RATIO (10-20); Calcium,Total 8.7 mg/dL (8.5-10.1); Chloride 97 mmol/L (98-107); Creatinine, Serum 0.71 mg/dL (0.70-1.30); EST Glomerular Filtration Rate 120 mL/min (>60); Est Glom Filt Rate - Afr Amer 146 mL/min (>60); Estimated Creatinine Clearance 92.88 ml/min; Globulin 3.8 g/dL (2.2-4.2); Glucose 120 mg/dL (74-106); Lipase 35 U/L (13-75); Potassium 3.5 mmol/L (3.5-5.1); Protein, Total 7.4 g/dL (6.4-8.2); Sodium Level 136 mmol/L (136-145)
[2023-12-31 10:15] LABS: Mucous, Urine 0 SEEN /hpf (<or=2+); Red Blood Cells-Urine 0 SEEN /hpf (0-5); Squamous Epithelial Cells - UA 0 SEEN /hpf (0-5); White Blood Cells 0 SEEN /hpf (0-5)
[2023-12-31 10:21] LABS: Color, Urine Yellow (Yellow); Glucose, Dipstick 50 mg/dl (Normal); Leukocyte Esterase-Dipstick 25 /ul (Negative); Nitrite-Dipstick Positive (Negative); Occult Blood-Urine 10 /ul (Negative); Protein-Dipstick 100 mg/dl (Negative); Specific Gravity, Urine 1.025 (1.002-1.030); Urine Clarity Sl. Cloudy (Clear); Urine Urobilinogen 4 mg/dl (Normal)
[2023-12-31 10:31] LABS: Urine Bilirubin Dipstick 3 mg/dL (Negative)
[2023-12-31 10:32] LABS: Ketone-Dipstick 150 mg/dl (Negative)
[2023-12-31 10:41] LABS: Bacteria 1+ /hpf (None Seen)
[2023-12-31 11:00] VITALS: BP 157/91; PULSE 114; RESP 22; O2SAT 98
[2023-12-31 12:10] VITALS: BP 152/80; PULSE 102; RESP 16; TEMP 36.4; O2SAT 98
[2023-12-31 12:43] VITALS: BP 138/96; PULSE 112; RESP 16; TEMP 36.8; O2SAT 96
--- NOTE | 2023-12-31 13:02 | EDS_ITS ---
HPI HPI - GI History of Present Illness Chief Complaint: Nausea/Vomiting/Diarrhea Narrative Narrative: 63-year-old male presenting with nausea, vomiting, diarrhea for the last few days. He has not had a fever at home. Note chills or bodyaches. No black or bloody stools. He does not have any abdominal pain. He has not eaten any exotic food or had any travel. He has not eaten anything out of the normal. Denies cough, shortness of breath. Denies recent antibiotic use. No known sick contacts. PFSH PFS Medical History Essential hypertension COVID-19 HLD (hyperlipidemia) History of left heart catheterization (LHC) (~08/07/20) Atherosclerotic heart disease of [place] coronary artery without angina pectoris Abnormal stress echocardiogram Home Medications ?Medication ?Instructions ?Recorded ?Last Taken ?Type atorvastatin 10 mg tablet 10 mg PO QHS #30 tabs 08/07/20 Unknown Rx metoprolol tartrate 25 mg tablet 25 mg PO BID #60 tabs 09/16/20 Unknown Rx ondansetron 4 mg disintegrating 4 mg PO Q8H PRN PRN Nausea #14 tabs 12/31/23 Unknown Rx tablet Allergy/AdvReac Type Severity Reaction Status Date / Time No Known Allergies Allergy Verified 12/31/23 07:43 Family History Mother Myocardial infarction Heart disease Surgical History Hx of cardiac catheterization (~08/07/20) History of surgery on arm Cleft palate Social History Smoking Status: Former smoker Smokeless tobacco user: chewing tobacco alcohol intake: never substance use type: does not use caffeine: Yes Type: coffee Number of servings: 1 ROS ROS ED Constitutional Constitutional ED: Denies chills, fever(s) or sweats Eyes Eyes: Denies blurry vision or change in vision ENT ENT ED: Denies ear pain or sore throat Cardiovascular Cardiovascular: Denies chest pain, palpitations or racing heartbeat Respiratory/Chest Respiratory/Chest: Denies cough, dyspnea or sputum Gastrointestinal Gastrointestinal: Reports abdominal pain, diarrhea, nausea and vomiting; Denies constipation Genitourinary Genitourinary ED: Denies dysuria, hematuria or urinary frequency Musculoskeletal Musculoskeletal: Denies arthralgias, myalgias or neck pain Integumentary Denies abscess, Abrasions or rash Neurologic Neurologic: Denies headache(s), paresthesias or weakness Psychiatric Psychiatric: Denies anxiety, depression, suicidal ideation or suicidal thoughts Endocrine Endocrinology: Denies polydipsia or polyuria EXAM Physical Exam Const Vital Signs: 12/31/23 07:42 12/31/23 09:02 12/31/23 09:03 Temperature 97.6 F L 97.6 F L Temperature Source Temporal Oral Pulse Rate 133 H 111 H 111 H Respiratory Rate 18 20 H 20 H Blood Pressure 154/83 H 130/115 H 130/115 H Blood Pressure Mean 106 120 120 Pulse Ox 96 96 96 Oxygen Delivery Method Room Air Room Air Room Air 12/31/23 11:00 12/31/23 12:10 12/31/23 12:43 Temperature 97.6 F L 98.3 F Temperature Source Temporal Pulse Rate 114 H 102 H 112 H Respiratory Rate 22 H 16 16 Blood Pressure 157/91 H 152/80 H 138/96 H Blood Pressure Mean 113 104 110 Pulse Ox 98 98 96 Oxygen Delivery Method Room Air Room Air Positive well nourished General Appearance ED: NAD; Negative for pallor HEENT Reports moist mucous membranes normocephalic and atraumatic Eyes PERRL and EOMs intact bilaterally Resp normal respiratory effort and clear to auscultation bilaterally Auscultation: Negative for rales or rhonchi Cardio regular rhythm Rate: tachycardic GI non-tender Neuro CN's II-XII intact bilaterally and moves all extremities Sensorium / Orientation: alert Motor Exam: strength 5/5 throughout Psych mental status grossly normal Mood & Affect: Negative for depressed or anxious Skin General Skin Exam: Negative for jaundice or pallor MDM MDM MDM Narrative Medical decision making narrative: Patient presenting with nausea, vomiting, diarrhea. He does not appear to have any abdominal pain on examination. Lungs clear to auscultation bilaterally. Patient slightly tachycardic aspect is dehydrated. IV line was established he was given a liter normal saline as well as Zofran. He was also given Toradol. Patient presenting with right flank pain. Differential includes colitis, diverticulitis, gastritis, pancreatitis, acute cholecystitis, constipation, appendicitis, UTI, pyelonephritis, calculi, ureteral calculi, obstruction, malignancy, dehydration, electrolyte abnormalities. CBC will be obtained to assess white blood cell count, hemoglobin, platelets. CMP to assess renal function, electrolytes, liver function, glucose. Lipase to assess for pancreatitis. Urinalysis to assess for UTI. CBC shows normal white blood cell count 8.0. Hemoglobin 15.1. Platelets are normal at 158. Renal function and electrolytes normal. Total bilirubin 1.6 however the rest of his LFTs are normal. UTI negative for infection. Reevaluation patient is feeling better. He was able to drink some water. I will discharge him home with some Zofran. Return precautions are discussed. Impression: 1. Nausea/vomiting 2. Diarrhea Lab Data Attestation: I reviewed the patient's lab results. Labs: Laboratory Results - last 24 hr 12/31/23 12/31/23 08:05 10:11 WBC 8.0 RBC 4.36 L Hgb 15.1 Hct 42.9 MCV 98.4 H MCH 34.6 H MCHC 35.2 RDW Std Deviation 46.3 H RDW Coeff of Gabriel 12.8 Plt Count 158 MPV 10.3 Immature Gran % (Auto) 0.200 Neut % (Auto) 81.2 H Lymph % (Auto) 10.3 L [place] % (Auto) 6.7 Eos % (Auto) 1.1 Baso % (Auto) 0.5 Absolute Neuts (auto) 6.5 Absolute Lymphs (auto) 0.83 Nucleated RBC % 0 Sodium 136 Potassium 3.5 Chloride 97 L Carbon Dioxide 27.0 Anion Gap 12 BUN 10 Creatinine 0.71 Estim Creat Clear Calc 92.88 Est GFR (MDRD) Af Amer 146 Est GFR (MDRD) Non-Af 120 BUN/Creatinine Ratio 14.2 Glucose 120 H Calcium 8.7 Total Bilirubin 1.60 H AST 68 H ALT 26 Alkaline Phosphatase 86 Total Protein 7.4 Albumin 3.6 Globulin 3.8 Albumin/Globulin Ratio 0.9 Lipase 35 Urine Color Yellow Urine Clarity Sl. Cloudy Urine pH 6.0 Ur Specific [place] 1.025 Urine Protein 100 H Urine Glucose (UA) 50 H Urine Ketones 150 A* Urine Occult Blood 10 H Urine Nitrite Positive H Urine Bilirubin 3 H Urine Urobilinogen 4 H Ur Leukocyte Esterase 25 H Urine RBC 0 SEEN Urine WBC 0 SEEN Ur Squamous Epith Cells 0 SEEN Urine Bacteria 1+ Urine Mucus 0 SEEN Discharge Plan Triage Chief Complaint: Nausea/Vomiting/Diarrhea ED Provider: Gregorio Deshpande Dx/Rx/DC Orders Instructions: ED Gastroenteritis, Viral (Adult) Prescriptions: New ondansetron 4 mg tablet,disintegrating 4 mg PO Q8H PRN PRN (Reason: Nausea) Qty: 14 0RF No Action atorvastatin 10 mg tablet 10 mg PO QHS Qty: 30 12RF metoprolol tartrate 25 mg tablet 25 mg PO BID Qty: 60 11RF Primary Care Provider: Riana Shanks Referrals: Riana Shanks MD [Primary Care Provider] - Print Language: [place]an Disposition Disposition: Home, Self Care Discharge Date/Time: 12/31/23 12:45
== END 2023-12-31 12:45 | disposition home or self-care (01) ==
PROVIDERS: Emergency Provider Student in an Organized Health Care Education/Training Program; PCP Family Medicine; Visit Provider Student in an Organized Health Care Education/Training Program
DX: R11.2 Nausea with vomiting, unspecified (principal); Z87.891 Personal history of nicotine dependence; R19.7 Diarrhea, unspecified; I10 Essential (primary) hypertension; E78.5 Hyperlipidemia, unspecified; I25.10 Atherosclerotic heart disease of native coronary artery without angina pectoris; Z79.899 Other long term (current) drug therapy
CPT/HCPCS: 80053; 81001; 83690; 85025; 96361; 96374; 96375; 99282; A4216; J2405

== ENCOUNTER 2024-04-21 09:59 | Emergency (ER) | payer MEDICARE, MEDICAID, SELFPAY ==
[2024-04-21] VITALS (7 sets, daily range): BP systolic 101–130; BP diastolic 63–82; PULSE 74–86; RESP 15–18; TEMP 36.8–37.1; O2SAT 97–98
--- NOTE | 2024-04-21 10:13 | ED.RN ---
unable to obtain accurate wt d/t bedscale outof order
--- NOTE | 2024-04-21 10:16 | EKG12_ITS ---
Test Reason : CP Blood Pressure : / mmHG Vent. Rate : 073 BPM Atrial Rate : 073 BPM P-R Int : 128 ms QRS Dur : 076 ms QT Int : 428 ms P-R-T Axes : 045 020 054 degrees QTc Int : 471 ms Normal sinus rhythm Normal ECG Confirmed by Alberto Torres ([id number]), pictures editor DOREEN MENENDEZ ([id number]) on 04/23/2024 9:29:12 AM Referred By: TB Confirmed By:Alberto Torres
--- NOTE | 2024-04-21 10:22 | ED.VIS.CHEST ---
HPI History of Present Illness Chief Complaint: Chest Pain Informant: patient Onset/Context/Timing Onset: Today and Hours Activity at onset: gradual Timing: Continuous Quality: Positive for Heaviness Location: Substernal Current Severity: Mild Maximum Severity: Mild Worsened By: Nothing Relieved By: Nothing Associated Symptoms: Negative for Nausea, Vomiting, Diaphoresis, Dyspnea, Cough, Fever, Lightheadedness, Acid Reflux or Palpitations Narrative Narrative: 63-year-old male history of hypertension. States around 9 AM and swelling while coming out of the bathroom he developed midsternal chest pain. Denies any radiation. Denies any shortness of breath, nausea nor diaphoresis. He has had no recent exertional chest pain or exertional shortness of breath. States he had a prior heart cath which showed no blockage. 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 He is on no blood thinners. He has never had a stent. Prior Similar Symptoms: Yes Recent Illness/Hospitalization: No CVD Risk Factors: Positive for Hypertension and Hypercholesterolemia PE Risk Factors: Negative for Recent Travel/Surgery, Recent Immobilization, Prior DVT or PE, Cancer or OCP + Smoking + >/=35 TAD Risk Factors: Negative for Marfan's Syndrome [facility] Medical History Essential hypertension COVID-19 HLD (hyperlipidemia) History of left heart catheterization (LHC) (~08/07/20) Atherosclerotic heart disease of [place] coronary artery without angina pectoris Abnormal stress echocardiogram Home Medications ?Medication ?Instructions ?Recorded ?Last Taken ?Type atorvastatin 10 mg tablet 10 mg PO QHS #30 tabs 08/07/20 Unknown Rx metoprolol tartrate 25 mg tablet 25 mg PO BID #60 tabs 09/16/20 Unknown Rx ondansetron 4 mg disintegrating 4 mg PO Q8H PRN PRN Nausea #14 tabs 12/31/23 Unknown Rx tablet Allergy/AdvReac Type Severity Reaction Status Date / Time No Known Allergies Allergy Verified 04/21/24 10:00 Family History Mother Myocardial infarction Heart disease Surgical History Hx of cardiac catheterization (~08/07/20) History of surgery on arm Cleft palate Social History Smoking Status: Former smoker Smokeless tobacco user: chewing tobacco alcohol intake: never substance use type: does not use caffeine: Yes Type: coffee Number of servings: 1 ROS ROS ED ROS Narrative Denies recent illness. Constitutional Constitutional ED: Denies chills or fever(s) ENT ENT ED: Denies ear pain Cardiovascular Cardiovascular: Reports as per HPI and chest pain Respiratory/Chest Respiratory/Chest: Denies cough, dyspnea or dyspnea on exertion Gastrointestinal Gastrointestinal: Denies abdominal pain, melena, nausea or vomiting Genitourinary Genitourinary ED: Denies dysuria or hematuria Musculoskeletal Musculoskeletal: Denies arthralgias Integumentary Denies abscess Neurologic Neurologic: Denies headache(s) Psychiatric Psychiatric: Denies anxiety Endocrine Endocrinology: Denies cold intolerance Hematologic/Lymphatic Hematologic/Lymphatic: Denies easy bleeding Allergic/Immunologic Allergic/Immunologic ED: Denies mouth swelling EXAM Physical Exam Narrative Exam Narrative: 63-year-old male vital signs stable afebrile. Pulse ox 98% on room air no signs hypoxia. No one present in his room. Sitting upright in bed. No distress. Complaining of chest pain. H EENT exam pupils round reactive light. Poor dentition. Neck nontender no JVD. Lungs clear to auscultation bilaterally. Heart regular rate and rhythm rate about 70 no murmur. Chest wall and ribs are nontender. Abdomen soft nontender. Moving all 4 extremities. 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 Equal symmetrical radial pulses. Calves are nontender without edema or cords. Back nontender. Neurologically is awake and alert with no focal motor deficits. Const Vital Signs: 04/21/24 10:00 04/21/24 10:13 Temperature 98.7 F Temperature Source Oral Pulse Rate 76 Respiratory Rate 15 Respiratory Effort Normal Blood Pressure 101/72 Blood Pressure Mean 81 Pulse Ox 98 Oxygen Delivery Method Room Air Positive well nourished and well developed; Negative for cachectic, contractures or unkempt General Appearance ED: well developed and NAD; Negative for unkempt, cachectic, contractures or pallor Nutritional Appearance: Negative for cachectic HEENT Reports moist mucous membranes normocephalic and atraumatic; Negative for trauma or tenderness Eyes PERRL and EOMs intact bilaterally General Eye ED: Negative for pale conjunctiva or scleral icterus Neck no lymphadenopathy, supple and no JVD General: Negative for tenderness Chest Wall inspection of chest normal and palpation of chest normal Chest: Negative for tenderness Resp normal respiratory effort and clear to auscultation bilaterally Effort and Inspection: Negative for respiratory distress Auscultation: Negative for rales, rhonchi, wheezes or diminished lung sounds Cardio regular rate, regular rhythm, S1 normal heart sound, S2 normal heart sound and no murmurs Peripheral Pulses: pulses 2+ throughout GI normal to inspection, nondistended, normoactive bowel sounds, soft to palpation, non-tender, non-distended and no masses Back/Spine no CVA tenderness; Negative for no thoracic nor lumbar tenderness Extremity normal to inspection General Extremety ED: Negative for edema, pulses abnormal or tenderness General Extremity: Negative for edema or pulses abnormal Neuro oriented x3 and CN's II-XII intact bilaterally Sensorium / Orientation: awake, alert, oriented to person, oriented to place and oriented to time; Negative for confused or lethargic Motor Exam: strength 5/5 throughout Psych mental status grossly normal Appearance: Negative for unkempt Attitude: No agitated Mood & Affect: Negative for depressed, anxious or tearful Skin no rashes or lesions noted and no wounds General Skin Exam: Negative for jaundice or pallor Rashes: No rashes noted Trauma: Negative for abrasion, laceration or puncture Heart Score History: Slightly/Non-Suspicious ECG: Normal Age: >45 - <65 years Risk Factors: No Risk Factors Troponin: </= Normal Limit Score: 1 MDM MDM MDM Narrative Medical decision making narrative: 63-year-old male with nonreproducible nonexertional chest pain. Will undergo cardiac workup. Cardiac etiology chest pain versus other. No history of DVT or PE or risk factors. Repeat exam at 2:14 PM patient is doing well. We went over all his test results. Patient clinically looks well. He is pain-free. 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 He is comfortable being discharged home to follow-up with his primary care physician. Last stress echo was December of last year which was negative. History & Record Review Discussion w/independent historian: Patient Additional record(s) reviewed:: Prior inpatient record, Prior outpatient record and Prior ED visit Lab Data Attestation: I reviewed the patient's lab results. Lab results narrative: CBC white count normal at 5 H&H 13 and 38. Electrolytes unremarkable. Gap at 9. Normal BUN and creatinine. Glucose 108. Initial troponin 5. 2-hour troponin 6. Chest x-ray and EKG unremarkable. Radiography Chest X-Ray - ED: 1 View, Read by ED Physician, Read by Radiologist, Normal, Heart, Lungs, Mediastinum, Bony Structures, No Acute Disease and Chronic Changes Diagnostic Testing: Chest x-ray, portable, single view interpreted both by myself and the radiologist shows no acute abnormality. Normal cardiac silhouette. Normal mediastinum. Normal lung ro. Chronic changes. Rhythm Strip Rhythm Strip: Sinus Rhythm Rate: 73 Ectopy: None EKG Initial EKG: Attestation: I personally reviewed and interpreted this EKG as follows: Interpretation: Sinus Rhythm and No Acute Injury Pattern Comments: Normal sinus rhythm rate of 73 no acute signs of TX or ischemia. No [id number]. Discharge Plan Triage Chief Complaint: Chest Pain ED Provider: Adolfo Bassett Dx/Rx/DC Orders Clinical Impression: Chest pain of uncertain etiology, History of hypertension Instructions: ED Chest Pain, Uncertain Cause Prescriptions: No Action ondansetron 4 mg tablet,disintegrating 4 mg PO Q8H PRN PRN (Reason: Nausea) Qty: 14 0RF atorvastatin 10 mg tablet 10 mg PO QHS Qty: 30 12RF metoprolol tartrate 25 mg tablet 25 mg PO BID Qty: 60 11RF Primary Care Provider: Riana Shanks Referrals: Riana Shanks MD [Primary Care Provider] - As soon as possible Activity Restrictions/Additional Instructions: Your test today, chest x-ray and EKG all look good. Follow-up with your primary care physician. Return if feeling worse. Print Language: Malagasy Disposition Disposition: Home, Self Care
--- NOTE | 2024-04-21 10:28 | RAD_ITS ---
INDICATION: chest pain EXAMINATION/TECHNIQUE: X-RAY - XR Chest 1 View COMPARISON: December 06, 2022 FINDINGS: LINES/DEVICES: None. LUNGS: No consolidation, edema or effusion. No pneumothorax. MEDIASTINUM AND CARDIOVASCULAR STRUCTURES: Cardiac silhouette not enlarged. Central airways and mediastinal contour are unremarkable. BONES AND SOFT TISSUES: There are stable right posterior rib deformities consistent with healed fractures. There is evidence of prior kyphoplasty or vertebroplasty of a lower thoracic vertebra. RAD/Chest 1 View (Portable) IMPRESSION: No radiographic evidence of acute cardiopulmonary disease. Electronically Signed: Dana Diggs MD at 10:42 EDT ,
[2024-04-21 10:31] LABS: Absolute Lymphocyte Count 0.65 X10^3/uL (0.83-4.51); Absolute Neutrophil Count 3.8 X10^3/uL (2.0-7.7); Basophil# 0.04 X10^3/uL; Basophil% 0.8 % (0-1); Eosinophil# 0.09 X10^3/uL; Eosinophils% 1.8 % (0-5); Hematocrit 38.7 % (40-54); Hemoglobin 13.9 g/dL (13.0-16.5); Lymphocyte # 0.65 X10^3/ul (0.83-4.51); Lymphocyte % 12.7 % (19-41); Mean Corp Hgb Conc 35.9 g/dL (32-36); Mean Corpuscular Hgb 36.4 pg (27.0-32.0); Mean Corpuscular Volume 101.3 fL (80-94); Mean Platelet Vol. 9.6 fl (6.2-12.0); Monocyte# 0.47 X10^3/uL; Monocyte% 9.2 % (0-10); NRBC Flagged by Analyzer 0 % (0-5); Neutrophil # 3.83 X10^3/uL (2.7-7.7); Neutrophil % 75.1 % (47-70); Platelet Count 101 K/mm3 (150-450); RBC Distribution Width CV 13.2 % (11.6-14.6); RBC Distribution Width SD 48.7 fl (35.1-43.9); Red Blood Count 3.82 M/mm3 (4.6-6.2); White Blood Count 5.1 K/mm3 (4.4-11.0)
[2024-04-21 10:44] LABS: Anion Gap 9 (5-15); BUN 4 mg/dL (7-18); BUN/Creat Ratio 6.1 RATIO (10-20); Calcium,Total 8.4 mg/dL (8.5-10.1); Chloride 96 mmol/L (98-107); Creatinine, Serum 0.66 mg/dL (0.70-1.30); EST Glomerular Filtration Rate 130 mL/min (>60); Est Glom Filt Rate - Afr Amer 158 mL/min (>60); Glucose 108 mg/dL (74-106); Potassium 3.6 mmol/L (3.5-5.1); Sodium Level 136 mmol/L (136-145); Troponin-I HS (w/2H Reflex) 5 pg/mL (3.0-78.0)
[2024-04-21] MEDS: Aspirin 81 MG TAB.CHEW 324 MG PO (11:02)
[2024-04-21 12:23] LABS: Reflex Troponin-HS? (from REC) Y
[2024-04-21 13:02] LABS: Troponin-I HS 6 pg/mL (3.0-78.0)
== END 2024-04-21 14:47 | disposition home or self-care (01) ==
PROVIDERS: Emergency Provider Emergency Medicine; PCP Family Medicine; Visit Provider Emergency Medicine
DX: R07.9 Chest pain, unspecified (principal); E78.00 Pure hypercholesterolemia, unspecified; I10 Essential (primary) hypertension; Z87.891 Personal history of nicotine dependence; I25.10 Atherosclerotic heart disease of native coronary artery without angina pectoris; Z79.899 Other long term (current) drug therapy
CPT/HCPCS: 71045; 80048; 84484; 85025; 93005; 99284; A4216